=== PATIENT | female | born 1955 | race Caucasian/White ===

== ENCOUNTER → 2018-11-06 | Outpatient (REF) | payer MEDICARE, MEDICAID ==
[~2018-11-06] MED LIST: AMLO10TA5 PO; ASPI81TA85 PO; ATOR1TAB21 PO; CARV6.25 PO; ELIQ5TAB PO; ESCI10TA2 PO; ESOM0.1C PO; FERR1TAB8 PO; METF500T4 PO; NEXI10GR PO; PATIENT COMMENT; WARF4TAB51
[2018-11-06 15:53] LABS: BASO # 0.1 10^3/uL (0.0-0.2); BASO % 0.8 % (0.0-1.0); EOS % 0.3 % (0.0-3.0); HEMATOCRIT 30.3 % (36.0-47.0); HEMOGLOBIN 8.2 g/dl (12.0-15.5); LYMPH # 1.7 10^3/uL (1.5-4.5); LYMPH % 16.3 % (24.0-44.0); MEAN CORPUSCULAR HEMOGLOBIN 19.1 pg (27.0-33.0); MEAN CORPUSCULAR HGB CONC 27.1 g/dl (32.0-36.5); MEAN CORPUSCULAR VOLUME 70.5 fl (80.0-96.0); MONO # 0.7 10^3/uL (0.0-0.8); MONO % 6.3 % (0.0-5.0); NEUTROPHILS # 7.9 10^3/uL (1.8-7.7); NEUTROPHILS % 75.9 % (36.0-66.0); PLATELET COUNT, AUTOMATED 376 10^3/uL (150-450); WHITE BLOOD COUNT 10.4 10^3/uL (4.0-10.0)
[2018-11-06 16:19] LABS: INR 0.99; PROTHROMBIN TIME 12.8 SECONDS (11.8-14.0)
[2018-11-06 16:29] LABS: ALBUMIN 3.4 GM/DL (3.2-5.2); ALT/SGPT 15 U/L (12-78); BILIRUBIN,TOTAL 0.4 MG/DL (0.2-1.0); BLOOD UREA NITROGEN 12 MG/DL (7-18); CALCIUM LEVEL 8.8 MG/DL (8.8-10.2); CARBON DIOXIDE LEVEL 24 MEQ/L (21-32); CHLORIDE LEVEL 109 MEQ/L (98-107); CHOLESTEROL LEVEL 204 MG/DL (<200); CREATININE FOR GFR 0.82 MG/DL (0.55-1.30); FREE T4 0.95 NG/DL (0.76-1.46); GLOMERULAR FILTRATION RATE > 60.0 (>45); GLUCOSE, FASTING 130 MG/DL (70-100); HDL CHOLESTEROL 40 MG/DL (>40); LDL CHOLESTEROL 104 MG/DL (<100); NON-HDL-C 164 MG/DL; POTASSIUM SERUM 3.3 MEQ/L (3.5-5.1); SODIUM LEVEL 142 MEQ/L (136-145); TOTAL PROTEIN 7.9 GM/DL (6.4-8.2); TRIGLYCERIDES LEVEL 300 MG/DL (<150)
[2018-11-06 16:42] LABS: TOTAL 25(OH) VITAMIN D 8.8 NG/ML (30.0-100.0)
[2018-11-06 18:04] LABS: HEMOGLOBIN A1c 5.7 %
[2018-11-09 00:09] LABS: Lyme Disease IgG/IgM Antibodie <0.91 ISR (0.00-0.90); Lyme Disease IgM Ab Quantitati <0.80 index (0.00-0.79)
== END ==
LOC: M LAB REF 15:22
PROVIDERS: ATTEND Family Medicine
DX: Z79.01 Long term (current) use of anticoagulants (principal); Z13.228 Encounter for screening for other metabolic disorders

== ENCOUNTER 2018-11-07 06:48 | Inpatient (IN) | payer MEDICARE, MEDICAID ==
[~2018-11-07] VITALS: Ht 154.9 cm; Wt 68.1 kg
[2018-11-07] VITALS (16 sets, daily range): BP systolic 144–192; BP diastolic 70–108
[2018-11-07] MEDS ORDERED: ESCI10TA2 PO (06:57)
[2018-11-07] MEDS ORDERED: WARF4TAB51 (06:57)
[2018-11-07] MEDS ORDERED: METF500T4 PO (06:57)
[2018-11-07] MEDS ORDERED: NS 1,000 ML IV SCH ×2 (07:15→21:00)
[2018-11-07 07:49] LABS: BASO # 0.1 10^3/uL (0.0-0.2); BASO % 0.7 % (0.0-1.0); EOS # 0.1 10^3/uL (0.0-0.50); EOS % 0.7 % (0.0-3.0); HEMATOCRIT 30.9 % (36.0-47.0); HEMOGLOBIN 8.6 g/dl (12.0-15.5); LYMPH # 1.4 10^3/uL (1.5-4.5); LYMPH % 15.9 % (24.0-44.0); MEAN CORPUSCULAR HEMOGLOBIN 19.8 pg (27.0-33.0); MEAN CORPUSCULAR HGB CONC 27.8 g/dl (32.0-36.5); MEAN CORPUSCULAR VOLUME 71.2 fl (80.0-96.0); MONO # 0.6 10^3/uL (0.0-0.8); MONO % 6.3 % (0.0-5.0); NEUTROPHILS # 6.6 10^3/uL (1.8-7.7); NEUTROPHILS % 75.9 % (36.0-66.0); PLATELET COUNT, AUTOMATED 343 10^3/uL (150-450); RED BLOOD COUNT 4.34 10^6/uL (4.00-5.40); WHITE BLOOD COUNT 8.7 10^3/uL (4.0-10.0)
[2018-11-07] MEDS ORDERED: NEXI10GR PO (07:53)
[2018-11-07 08:01] LABS: INR 1.05; PROTHROMBIN TIME 13.4 SECONDS (11.8-14.0)
[2018-11-07] MEDS: GASTROGRAFIN SOLUTION 30ML PO SCH ×2 (08:17→08:48)
[2018-11-07 08:19] LABS: ALBUMIN 3.3 GM/DL (3.2-5.2); ALT/SGPT 15 U/L (12-78); BILIRUBIN,DIRECT 0.1 MG/DL (0.0-0.2); BILIRUBIN,TOTAL 0.4 MG/DL (0.2-1.0); BLOOD UREA NITROGEN 11 MG/DL (7-18); CALCIUM LEVEL 8.9 MG/DL (8.8-10.2); CARBON DIOXIDE LEVEL 26 MEQ/L (21-32); CHLORIDE LEVEL 109 MEQ/L (98-107); CPK CREATINE PHOSPHOKINASE 58 U/L (26-192); CREATININE FOR GFR 0.82 MG/DL (0.55-1.30); FERRITIN 5 NG/ML (8-252); GLOMERULAR FILTRATION RATE > 60.0 (>45); GLUCOSE, FASTING 120 MG/DL (70-100); IRON (FE) 28 UG/DL (50-170); MB/CK RELATIVE INDEX 1.72 (< OR =4); PERCENT SATURATION 5.7 % (13.2-45.0); POTASSIUM SERUM 3.3 MEQ/L (3.5-5.1); SODIUM LEVEL 142 MEQ/L (136-145); TOTAL IRON BINDING CAPACITY 487 UG/DL (250-450); TOTAL PROTEIN 7.9 GM/DL (6.4-8.2); TROPONIN I < 0.02 NG/ML (< 0.10)
[2018-11-07] MEDS ORDERED: ELIQ5TAB PO (09:36)
[2018-11-07] MEDS ORDERED: ESOM0.1C PO (09:36)
[2018-11-07] MEDS ORDERED: PATIENT COMMENT (09:40)
[2018-11-07] MEDS ORDERED: LISINOPRIL 20 MG TAB PO ONE (09:45)
[2018-11-07 09:50] LABS: VITAMIN B12 LEVEL 352 PG/ML
[2018-11-07 09:51] LABS: FOLATE 11.8 NG/ML
[2018-11-07] MEDS ORDERED: ISOVUE-370 76% 100ML VIAL (Q9967) As Ordered ONE (09:59)
--- NOTE | 2018-11-07 10:25 | HPEPDOC ---
[facility] Medical History & Physical Date of Admission Nov 07, 2018 Date of Service: Nov 07, 2018 Attending Physician: MAXINE PEDRAZA MD History and Physical Time of service 10 AM CHIEF COMPLAINT bright red blood per rectum HISTORY OF PRESENT ILLNESS: This is a 63-year-old female who presents with complaints of new onset bright red blood per rectum that occurred this morning. Just prior to having the episode she felt like she is about to have diarrhea. She reports having a history of diarrhea for the last 4 months with the last episode of diarrhea 2 days ago. She reports having 3-4 bowel movements per day on days when the diarrhea is active; she takes loperamide. She denies having abdominal pain, and denies ever having hematemesis. She does endorse having some dizziness yesterday PAST MEDICAL & SURGICAL HISTORY: 1. CVA and TIA. 2. Hypertension. 3 dyslipidemia. 4. Bipolar disorder with depression. 5. History of hysterectomy. 6. History of breast nodule resection 7. DM SOCIAL HISTORY: Admits to smoking 2 packs of cigarettes per day. Denies alcohol use FAMILY HISTORY: Father had an PA. Brother had a CVA. Another family member had colon cancer. ALLERGIES: Please see below. REVIEW OF SYSTEMS: 12 point review of systems negative except as listed in HPI HOME MEDICATIONS: Please see below. PHYSICAL EXAMINATION: VITAL SIGNS: Temperature 96F, pulse 77 bpm, respiratory rate 16 breaths per minute, blood pressure 184/62, pulse oximetry 99% on room air GENERAL APPEARANCE: Well-nourished, developed, flat affect. HEENT: Normocephalic, atraumatic, mucous membranes moist and pink, no tongue glossitis, conjunctival pallor CARDIOVASCULAR: Regular rate and rhythm. No murmurs, rubs or gallops, radial pulses intact bilaterally LUNGS: Clear to auscultation bilaterally on room air. ABDOMEN: Obese, no postsurgical scars, soft and nontender on palpation. MUSCULOSKELETAL: Age of motion intact 4 extremities, EXTREMITIES: No bilateral lower extremity edema. NEUROLOGICAL: CN II to 12 grossly intact. Speech is not dysarthric PSYCHIATRIC: Alert and oriented to person, place and time, able to understand and follow commands. Patient does have some psychomotor slowing and a flat affect. LABORATORY DATA: See below. IMAGING: CT of the abdomen shows thickening of the descending and sigmoid colon, possibly due to colitis MICROBIOLOGY: Please see below. ASSESSMENT: Mrs. Monique is a 63-year-old female with a past medical history of hypertension, dyslipidemia, CVAs, TIAs, bipolar disorder with depression and tobacco abuse who will be admitted for evaluation of lower GI bleed. . PLAN: 1. Lower GI bleed. Possibly due to colitis. The differential also includes diverticulosis, angiodysplasia &hemorrhoids. Hemoglobin was 8.6. CT of the abdomen showed possible colitis Plan: admit to general medical floor / Follow-up stool occult blood /follow-up report from CT of the abdomen / type and screen/ bowel prep afternoon/nothing by mouth after midnight with IV fluids /GI consult /hold apixaban 2. Uncontrolled hypertension. Plan: start Amlodpine 5mg PO daily and Lisinopril 5mg daily 3. Hypokalemia. Likely due to GI loss. Plan: Replete potassium /. Follow-up BMP in the morning 4. Diabetes. Plan: Hold metformin, follow Accu-Cheks, follow-up A1c 5. History of CVA and TIA. Plan: hold apixaban 6. Bipolar disorder with depression. Plan continue with home medsa Tobacco dependence. Plan: Nicotine patch /tobacco cessation counseling Disposition: Pending clinical course. DVT prophylaxis SCDs. No chemical thromboprophylaxis due to acute anemia Vital Signs Vital Signs Date Time Temp Pulse Resp B/P (MAP) Pulse Ox O2 Delivery O2 Flow Rate FiO2 11/07/18 09:42 209/84 11/07/18 08:48 66 98 11/07/18 06:48 96.0 16 Room Air Laboratory Data Labs 24H Laboratory Tests 2 11/07/18 07:33: Immature Granulocyte % (Auto) 0.5, White Blood Count 8.7, Red Blood Count 4.34, Hemoglobin 8.6L, Hematocrit 30.9L, Mean Corpuscular Volume 71.2L, Mean Corpuscular Hemoglobin 19.8L, Mean Corpuscular Hemoglobin Concent 27.8L, Red Cell Distribution Width 21.5H, Platelet Count 343, Neutrophils (%) (Auto) 75.9H, Lymphocytes (%) (Auto) 15.9L, Monocytes (%) (Auto) 6.3H, Eosinophils (%) (Auto) 0.7, Basophils (%) (Auto) 0.7, Neutrophils # (Auto) 6.6, Lymphocytes # (Auto) 1.4L, Monocytes # (Auto) 0.6, Eosinophils # (Auto) 0.1, Basophils # (Auto) 0.1, Nucleated Red Blood Cells % (auto) 0.0, Prothrombin Time 13.4, Prothromb Time International Ratio 1.05, Activated Partial Thromboplast Time 27.0, Anion Gap 7L, Glomerular Filtration Rate > 60.0, Calcium Level 8.9, Iron Level 28L, Total Iron Binding Capacity 487H, Transferrin % Saturation 5.7L, Ferritin 5L, Aspartate Amino Transf (AST/SGOT) 14, Alanine Aminotransferase (ALT/SGPT) 15, Alkaline Phosphatase 137H, Total Bilirubin 0.4, Direct Bilirubin 0.1, Total Creatine Kinase 58, Creatine Kinase MB 1.0, Creatine Kinase MB Relative Index 1.72, Troponin I < 0.02, Total Protein 7.9, Albumin 3.3, Albumin/Globulin Ratio 0.72L, Vitamin B12 Level 352, Folate 11.8 CBC/BMP Laboratory Tests 11/07/18 07:33 Red Blood Count 4.34, Mean Corpuscular Volume 71.2 L, Mean Corpuscular Hemoglobin 19.8 L, Mean Corpuscular Hemoglobin Concent 27.8 L, Red Cell Distribution Width 21.5 H, Neutrophils (%) (Auto) 75.9 H, Lymphocytes (%) (Auto) 15.9 L, Monocytes (%) (Auto) 6.3 H, Eosinophils (%) (Auto) 0.7, Basophils (%) (Auto) 0.7, Neutrophils # (Auto) 6.6, Lymphocytes # (Auto) 1.4 L, Monocytes # (Auto) 0.6, Eosinophils # (Auto) 0.1, Basophils # (Auto) 0.1 Home Medications Scheduled Apixaban (Eliquis) 5 Mg Tablet, 5 MG PO BID PATIENT WAS ON WARFARIN 3 MG DAILY - ON MONDAY THE WARFARIN WAS DISCONTINUED AND IS TO START ELIQUIS ON Monday11/08/18 Escitalopram Oxalate (Escitalopram Oxalate) 10 Mg Tablet, 10 MG PO DAILY NEW MEDICATION - PATIENT HAS NOT STARTED YET. Esomeprazole Magnesium (Esomeprazole Magnesium) 20 Mg Capsule.dr, 20 MG PO DAILY Metformin HCl (Metformin HCl ER) 500 Mg Tab.er.24h, 500 MG PO BID Miscellaneous Medications [Patient Comment] PATIENT STATES SHE USED TO TAKE MEDICATION FOR CHOLESTEROL AND HIGH BLOOD PRESSURE... CALLED HER PREVIOUS PHARMACY IN [place], THEY HAVE NO RECORD OF A BP MEDICATION. SHE DID HAVE ATORVASTATIN 80MG. PATIENT HAS NOT TAKEN THESE MEDICATIONS IN AT LEAST 4 MONTHS BUT HAS APPOINTMENT ON 11/09/18. Allergies Coded Allergies: No Known Allergies (Unverified , 11/07/18) A-FIB/CHADSVASC A-FIB History Current/History of A-Fib/PAF?: No Current PO Anticoag Therapy: No MAXINE PEDRAZA MD Nov 07, 2018 10:25
--- NOTE | 2018-11-07 10:31 | REP ---
CT of the abdomen and pelvis with IV contrast and with bowel contrast: There are no comparisons. The visualized lower lung peguero are unremarkable. There is a 6.4 cm hiatal hernia. The hepatic parenchyma, gallbladder, pancreas, spleen, adrenals and abdominal aorta are unremarkable. There is no retroperitoneal adenopathy or mass. There is wall thickening of the descending colon and sigmoid colon, compatible with colitis in the appropriate clinical setting. The bowel is otherwise unremarkable. Pelvis: There is a hysterectomy. Vaginal cuff and adnexa are unremarkable. The bladder is unremarkable. There is no ascites. There is no adenopathy. Impression: Wall thickening of the descending colon and sigmoid colon compatible with colitis in the appropriate clinical setting. Hysterectomy. Electronically Signed by Adolfo Fonseca MD 11/07/2018 10:23 A
[2018-11-07] MEDS ORDERED: NICOTINE 21MG/24HR 1 EA TRANSDERMAL TD ONE (10:45)
[2018-11-07] MEDS ORDERED: amLODIPine 5 MG TAB PO ONE (11:30)
[2018-11-07] MEDS ORDERED: LISINOPRIL 5 MG TAB PO ONE (11:30)
[2018-11-07] MEDS: KCL 20MEQ in NS 1000ML 1,000 ML IV SCH (11:54)
[2018-11-07] MEDS ORDERED: GOLYTELY SOLN 4000 ML BTL PO ONE ×2 (12:00→16:00)
--- NOTE | 2018-11-07 14:47 | REP ---
Portable chest, 08:09 a.m., single AP view with the patient semi upright: There are no comparisons. The lung peguero are clear. The cardiac size is normal. The vashti, mediastinum, and skeletal structures are unremarkable. Impression: Negative portable chest. Electronically Signed by Adolfo Fonseca MD 11/07/2018 08:22 A
[2018-11-07] MEDS: ESCITALOPRAM OXALATE 10 MG TAB (LEXAPRO) PO SCH (14:48)
[2018-11-07] MEDS: METOPROLOL 5 MG/5 ML VIAL IV PRN (16:31)
[2018-11-07] MEDS: ACETAMINOPHEN 500 MG TAB PO PRN (17:25)
--- NOTE | 2018-11-07 20:32 | ECGEPIP ---
[facility] - ED Test Date: 2018-11-07 Pat Name: TRAVON LIVINGSTON Department: Room: - Gender: Female Controls Technician: DEBRA : [id number] Requested By: Eddie Acharya Order Number: [id number] Reading MD: Eddie Gomez Measurements Intervals [place] Rate: 71 P: 67 HI: 134 QRS: 26 QRSD: 80 T: 44 QT: 416 QTc: 454 Interpretive Statements SINUS RHYTHM NO PRIORS FOR COMPARISON Electronically Signed on 11-07-2018 20:32:27 EDT by Eddie Gomez
[2018-11-08] VITALS (10 sets, daily range): BP systolic 132–198; BP diastolic 42–90
[2018-11-08] MEDS ORDERED: ONDANSETRON 4MG/2ML VIAL (J2405) IV SCH
[2018-11-08] MEDS ORDERED: ONDANSETRON 4MG/2ML VIAL (J2405) IV PRN (00:30)
[2018-11-08] MEDS: METOPROLOL 5 MG/5 ML VIAL IV PRN (01:56)
[2018-11-08] MEDS: ACETAMINOPHEN 500 MG TAB PO PRN ×2 (02:13→16:55)
[2018-11-08] MEDS ORDERED: amLODIPine 10 MG TAB PO ONE (02:15)
[2018-11-08 05:48] LABS: HEMATOCRIT 29.8 % (36.0-47.0); HEMOGLOBIN 7.9 g/dl (12.0-15.5); MEAN CORPUSCULAR HEMOGLOBIN 19.1 pg (27.0-33.0); MEAN CORPUSCULAR HGB CONC 26.5 g/dl (32.0-36.5); PLATELET COUNT, AUTOMATED 355 10^3/uL (150-450); RED BLOOD COUNT 4.14 10^6/uL (4.00-5.40); WHITE BLOOD COUNT 8.3 10^3/uL (4.0-10.0)
[2018-11-08 06:04] LABS: HEMOGLOBIN A1c 5.4 %
[2018-11-08 06:18] LABS: BLOOD UREA NITROGEN 5 MG/DL (7-18); CARBON DIOXIDE LEVEL 29 MEQ/L (21-32); CHLORIDE LEVEL 110 MEQ/L (98-107); CREATININE FOR GFR 0.71 MG/DL (0.55-1.30); GLOMERULAR FILTRATION RATE > 60.0 (>45); GLUCOSE, FASTING 105 MG/DL (70-100); MAGNESIUM LEVEL 2.1 MG/DL (1.8-2.4); POTASSIUM SERUM 3.3 MEQ/L (3.5-5.1); SODIUM LEVEL 143 MEQ/L (136-145)
[2018-11-08] MEDS ORDERED: hydrALAZINE INJ 20 MG/ML VIAL IV PRN (09:00)
[2018-11-08] MEDS: KCL 20MEQ in NS 1000ML 1,000 ML IV SCH (09:12)
[2018-11-08] MEDS: ESCITALOPRAM OXALATE 10 MG TAB (LEXAPRO) PO SCH (09:12)
[2018-11-08] MEDS: LISINOPRIL 40 MG TAB PO SCH (09:12)
[2018-11-08] MEDS ORDERED: ENALAPRILAT INJ 2.5MG/2ML VIAL IV ONE (18:00)
[2018-11-08] MEDS ORDERED: CARVedilol 6.25 MG TAB PO ONE (18:00)
--- NOTE | 2018-11-08 18:30 | IPNPDOC ---
Subjective Date Seen The patient was seen on 11/08/18. Time of service 9:15 AM Subjective Chief Complaint/HPI The patient tolerated bowel prep and did not have additional episodes of bloody stools Assessment /Plan Assessment Mrs. Monique is a 63-year-old female with a past medical history of hypertension, dyslipidemia, CVAs, TIAs, bipolar disorder with depression and tobacco abuse who will be admitted for evaluation of lower GI bleed. . PLAN: 1. Lower GI bleed. -Possibly due to colitis versus diverticulosis, versus angiodysplasia or hemorrhoids. -Her Hemoglobin has dropped slightly -The CT of the abdomen showed possible colitis -Stool occult was negative Plan: Follow-up stool occult blood /will continue his clear liquid diet for now but will switch to nothing by mouth after midnight for colonoscopy on Monday / GI consulted/hold apixaban 2. Uncontrolled hypertension. Plan: Increase Amlodpine to 10 mg PO daily, Lisinopril 40 mg daily and add Coreg 6.25 mg every 12 hours 3. Hypokalemia. Likely due to GI loss. Plan: Replete potassium /. Follow-up BMP in the morning 4. Diabetes. -A1c 5.4 Plan: Hold metformin, follow Accu-Cheks 5. History of CVA and TIA. Plan: hold apixaban 6. Bipolar disorder with depression. Plan continue with home medsa Tobacco dependence. Plan: Nicotine patch /tobacco cessation counseling Disposition: Pending completion of colonoscopy DVT prophylaxis SCDs. No chemical thromboprophylaxis due to lower GI bleed Plan/VTE VTE Prophylaxis Ordered?: No VTE Exclusion Mechanical Proph: Other VTE Exclusion Pharmacological: Active Bleeding VS, I&O, 24H, Fishbone Vital Signs/I&O Vital Signs Date Time Temp Pulse Resp B/P (MAP) Pulse Ox O2 Delivery O2 Flow Rate FiO2 11/08/18 18:18 67 160/42 11/08/18 16:00 97.4 17 96 11/07/18 13:56 Room Air I&O- Last 24 Hours up to 6 AM 11/08/18 05:59 Intake Total 1200 ml Output Total 600 ml Balance 600 ml Laboratory Data 24H LABS Laboratory Tests 2 11/08/18 05:33: Nucleated Red Blood Cells % (auto) 0.0, Anion Gap 4L, Glomerular Filtration Rate > 60.0, Estimated Mean Plasma Glucose 108, Hemoglobin A1c 5.4, Blood Urea Nitrogen 5#L, Creatinine 0.71, Sodium Level 143, Potassium Level 3.3L, Chloride Level 110H, Carbon Dioxide Level 29, Calcium Level 9.0, Magnesium Level 2.1 CBC/BMP Laboratory Tests 11/08/18 05:33 Red Blood Count 4.14, Mean Corpuscular Volume 72.0 L, Mean Corpuscular Hemoglobin 19.1 L, Mean Corpuscular Hemoglobin Concent 26.5 L, Red Cell Distribution Width 21.6 H, Calcium Level 9.0 Microbiology Microbiology 11/07/18 Stool Occult Blood (JERALD) - Final, Complete MAXINE PEDRAZA MD Nov 08, 2018 18:30
[2018-11-08] MEDS ORDERED: KCL 10MEQ/100ML SWI (KRUN) 10 MEQ in APPROPRIATE DILUENT 1 EA IV ONE (18:45)
[2018-11-09] VITALS (12 sets, daily range): BP systolic 120–177; BP diastolic 58–77
[2018-11-09 05:33] LABS: BASO # 0.1 10^3/uL (0.0-0.2); BASO % 0.6 % (0.0-1.0); EOS % 0.4 % (0.0-3.0); HEMATOCRIT 27.4 % (36.0-47.0); HEMOGLOBIN 7.3 g/dl (12.0-15.5); LYMPH # 2.1 10^3/uL (1.5-4.5); LYMPH % 22.9 % (24.0-44.0); MEAN CORPUSCULAR HEMOGLOBIN 19.3 pg (27.0-33.0); MEAN CORPUSCULAR HGB CONC 26.6 g/dl (32.0-36.5); MEAN CORPUSCULAR VOLUME 72.5 fl (80.0-96.0); MONO # 0.7 10^3/uL (0.0-0.8); MONO % 7.1 % (0.0-5.0); NEUTROPHILS # 6.4 10^3/uL (1.8-7.7); NEUTROPHILS % 68.7 % (36.0-66.0); PLATELET COUNT, AUTOMATED 312 10^3/uL (150-450); RED BLOOD COUNT 3.78 10^6/uL (4.00-5.40); WHITE BLOOD COUNT 9.4 10^3/uL (4.0-10.0)
[2018-11-09 05:48] LABS: BLOOD UREA NITROGEN 5 MG/DL (7-18); CALCIUM LEVEL 8.3 MG/DL (8.8-10.2); CARBON DIOXIDE LEVEL 27 MEQ/L (21-32); CHLORIDE LEVEL 114 MEQ/L (98-107); CREATININE FOR GFR 0.78 MG/DL (0.55-1.30); GLOMERULAR FILTRATION RATE > 60.0 (>45); GLUCOSE, FASTING 92 MG/DL (70-100); POTASSIUM SERUM 3.4 MEQ/L (3.5-5.1); SODIUM LEVEL 144 MEQ/L (136-145)
[2018-11-09] MEDS: KCL 20MEQ in NS 1000ML 1,000 ML IV SCH (06:39)
[2018-11-09] MEDS: ESCITALOPRAM OXALATE 10 MG TAB (LEXAPRO) PO SCH (08:30)
[2018-11-09] MEDS: CARVedilol 6.25 MG TAB PO SCH ×2 (08:31→20:32)
[2018-11-09] MEDS: LISINOPRIL 40 MG TAB PO SCH (08:31)
[2018-11-09] MEDS: amLODIPine 10 MG TAB PO SCH (08:31)
[2018-11-09] MEDS ORDERED: IRON SUCROSE 25 MG in NS 50 ML IV ONE (12:00)
[2018-11-09] MEDS ORDERED: IRON SUCROSE 75 MG in NS 100 ML IV ONE (12:00)
[2018-11-09] MEDS ORDERED: LIDOCAINE 2% INJ 100 MG/5 ML SDV (FOR ANES.) As Ordered ONE (13:20)
[2018-11-09] MEDS ORDERED: PROPOFOL 200 MG/20 ML VIAL As Ordered ONE (13:20)
[2018-11-09] MEDS ORDERED: ePHEDrine SULFATE 25 MG/5 ML(5MG/ML) SYRINGE As Ordered ONE (13:36)
--- NOTE | 2018-11-09 15:01 | CR ---
DATE OF CONSULTATION: 11/08/2018 This is a 63-year-old white female who was admitted to [facility] ([facility]) on 11/07/2018 for a history of sudden onset of bright red blood per rectum. The patient has had issues with diarrhea for the past four months and has had on average 3-4 bowel movements per day. She has been using loperamide to help control her symptoms. She denies any nausea, vomiting, fevers, night sweats or shaking chills. The patient is being seen by gastroenterology (GI) for further evaluation of anemia and her rectal bleeding. PAST MEDICAL HISTORY: Positive for hypertension, bipolar disorder with depression, diabetes mellitus, hypertension, and history of cerebrovascular accident (CVA) and transient ischemic attack (TIA). SOCIAL HISTORY: The patient smokes two packs of cigarettes a day. Alcohol, she denies. FAMILY HISTORY: Brother had a cerebrovascular accident (CVA). Father had a myocardial infarction. Apparently, there is some family member who had colon cancer above we do not know whether this is a first degree relative. ALLERGIES: Noncontributory. REVIEW OF SYSTEMS: 12-point review of systems is noncontributory. PHYSICAL EXAMINATION: GENERAL: Well-developed, well-nourished female in no acute distress. Appears stated age. CHEST: Clear to auscultation and percussion. CARDIOVASCULAR: Showed a regular rhythm. No murmurs or gallops. Normal physiological split, S1, S2. ABDOMEN: Soft, nontender. No masses, guarding, rebound or hepatosplenomegaly. Bowel sounds are positive. CT of the abdomen suggested thickening of the sigmoid and descending colon. LABORATORY STUDIES: On admission showed a white count of 8700, hemoglobin and hematocrit was 8.6 and 30.9 with an MCV of 71.2. The patient's count on 11/08/2018 was 7.9 and 29.8 with no obvious further episodes of bleeding. The patient's chemistry showed a potassium of 3.3, BUN was 11, creatinine was 0.82, glucose was 120. Liver functions were normal. Troponins were negative. ANALYSIS: Lower gastrointestinal (GI) bleeding of unknown etiology. The patient states that she has never had a colonoscopy before. The plan will be to set the patient up for a colonoscopy. Bowel preparation has been ordered. The purpose of the procedure is to rule out any occult neoplasm or polyps and to assess the patient's etiology of her bleeding.
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
[2018-11-09] MEDS ORDERED: SLF 3 ML SYR IV PRN (18:45)
--- NOTE | 2018-11-09 20:20 | IPNPDOC ---
Subjective Date Seen The patient was seen on 11/09/18. Time of service 4:35 PM Subjective Chief Complaint/HPI Bright red blood per rectum Events since last encounter Post colonoscopy the patient just found out that she had rectal cancer is teary and is in shock. She denies having any questions or now. Objective Physical Examination Other physical findings PHYSICAL EXAMINATION: GENERAL APPEARANCE: Well-nourished, developed, teary, anxious HEENT: Normocephalic, atraumatic, mucous membranes moist and pink, CARDIOVASCULAR: Regular rate and rhythm. No murmurs, rubs or gallops, LUNGS: Clear to auscultation bilaterally on room air. ABDOMEN: Obese, soft and nontender on palpation. NEUROLOGICAL: CN II to 12 grossly intact. Speech is not dysarthric PSYCHIATRIC: Alert and oriented to person, place and time, able to understand and follow commands. Assessment /Plan Assessment Mrs. Monique is a 63-year-old female with a past medical history of hypertension, dyslipidemia, CVAs, TIAs, bipolar disorder with depression and tobacco abuse who will be admitted for evaluation of lower GI bleed. . PLAN: 1. Acute anemia in the setting of lower GI bleed secondary to rectal cancer Hemoglobin is trending down. Stool occult blood was negative. Colonoscopy was done today, which confirmed the presence of rectal cancer Plan: Per discussion with GI will consult surgery and hematology, we'll transfuse 1 unit of blood today 2. Chronic hypertension. Better controlled Plan: Continue with Amlodpine 10 mg PO daily, Lisinopril 40 mg daily and Coreg 6.25 mg every 12 hours 3. Hypokalemia. Likely due to GI loss. Plan: Replete potassium /. Follow-up BMP and magnesium in the morning 4. Diabetes. -A1c 5.4 Plan: Hold metformin, follow Accu-Cheks 5. History of CVA and TIA. Plan: resume apixaban 6. Bipolar disorder with depression. The patient is currently anxious and teary Plan uptitrate antidepressants Tobacco dependence. Plan: Nicotine patch /tobacco cessation counseling Disposition: Pending subspecialist recommendations. DVT prophylaxis with apixaban Plan/VTE VTE Prophylaxis Ordered?: No VTE Exclusion Mechanical Proph: Other VTE Exclusion Pharmacological: Active Bleeding VS, I&O, 24H, Fishbone Vital Signs/I&O Vital Signs Date Time Temp Pulse Resp B/P (MAP) Pulse Ox O2 Delivery O2 Flow Rate FiO2 11/09/18 17:40 97.1 63 18 124/61 (82) 94 11/07/18 13:56 Room Air I&O- Last 24 Hours up to 6 AM 11/09/18 05:59 Intake Total 2460 ml Output Total 850 ml Balance 1610 ml Laboratory Data 24H LABS Laboratory Tests 2 11/09/18 05:12: Immature Granulocyte % (Auto) 0.3, White Blood Count 9.4, Red Blood Count 3.78L, Hemoglobin 7.3L, Hematocrit 27.4L, Mean Corpuscular Volume 72.5L, Mean Corpuscular Hemoglobin 19.3L, Mean Corpuscular Hemoglobin Concent 26.6L, Red Cell Distribution Width 21.4H, Platelet Count 312, Neutrophils (%) (Auto) 68.7H, Lymphocytes (%) (Auto) 22.9L, Monocytes (%) (Auto) 7.1H, Eosinophils (%) (Auto) 0.4, Basophils (%) (Auto) 0.6, Neutrophils # (Auto) 6.4, Lymphocytes # (Auto) 2.1, Monocytes # (Auto) 0.7, Eosinophils # (Auto) 0.0, Basophils # (Auto) 0.1, Nucleated Red Blood Cells % (auto) 0.0, Anion Gap 3L, Glomerular Filtration Rate > 60.0, Blood Urea Nitrogen 5L, Creatinine 0.78, Sodium Level 144, Potassium Level 3.4L, Chloride Level 114H, Carbon Dioxide Level 27, Calcium Level 8.3L 11/09/18 14:49: Carcinoembryonic Antigen 2.2 CBC/BMP Laboratory Tests 11/09/18 05:12 Red Blood Count 3.78 L, Mean Corpuscular Volume 72.5 L, Mean Corpuscular Hemoglobin 19.3 L, Mean Corpuscular Hemoglobin Concent 26.6 L, Red Cell Distribution Width 21.4 H, Neutrophils (%) (Auto) 68.7 H, Lymphocytes (%) (Auto) 22.9 L, Monocytes (%) (Auto) 7.1 H, Eosinophils (%) (Auto) 0.4, Basophils (%) (Auto) 0.6, Neutrophils # (Auto) 6.4, Lymphocytes # (Auto) 2.1, Monocytes # (Auto) 0.7, Eosinophils # (Auto) 0.0, Basophils # (Auto) 0.1, Calcium Level 8.3 L Microbiology Microbiology 11/07/18 Stool Occult Blood (JERALD) - Final, Complete MAXIEN PEDRAZA MD Nov 09, 2018 20:20
[2018-11-09] MEDS ORDERED: POTASSIUM CHLORIDE 10 MEQ SR TABLET PO ONE (21:00)
[2018-11-09] MEDS ORDERED: LORazepam 0.5 MG TAB PO ONE (21:00)
[2018-11-09] MEDS: NICOTINE 14 MG/24 HR TRANSDERMAL TD SCH (21:33)
[2018-11-09] MEDS: APIXABAN 5 MG TAB (ELIQUIS) PO SCH (21:34)
[2018-11-09] MEDS: SLF 3 ML SYR IV SCH (21:37)
[2018-11-10] VITALS: BP 148/58
[2018-11-10 04:00] VITALS: BP 106/53
[2018-11-10 05:15] LABS: BASO # 0.1 10^3/uL (0.0-0.2); BASO % 0.6 % (0.0-1.0); EOS # 0.1 10^3/uL (0.0-0.50); EOS % 0.7 % (0.0-3.0); HEMATOCRIT 34.2 % (36.0-47.0); LYMPH # 1.6 10^3/uL (1.5-4.5); LYMPH % 18.5 % (24.0-44.0); MEAN CORPUSCULAR HEMOGLOBIN 22.4 pg (27.0-33.0); MEAN CORPUSCULAR HGB CONC 29.2 g/dl (32.0-36.5); MEAN CORPUSCULAR VOLUME 76.7 fl (80.0-96.0); MONO # 0.6 10^3/uL (0.0-0.8); MONO % 6.7 % (0.0-5.0); NEUTROPHILS # 6.3 10^3/uL (1.8-7.7); NEUTROPHILS % 72.8 % (36.0-66.0); PLATELET COUNT, AUTOMATED 277 10^3/uL (150-450); RED BLOOD COUNT 4.46 10^6/uL (4.00-5.40); WHITE BLOOD COUNT 8.7 10^3/uL (4.0-10.0)
[2018-11-10 05:41] LABS: BLOOD UREA NITROGEN 8 MG/DL (7-18); CALCIUM LEVEL 8.4 MG/DL (8.8-10.2); CARBON DIOXIDE LEVEL 24 MEQ/L (21-32); CHLORIDE LEVEL 112 MEQ/L (98-107); CREATININE FOR GFR 0.78 MG/DL (0.55-1.30); GLOMERULAR FILTRATION RATE > 60.0 (>45); GLUCOSE, FASTING 103 MG/DL (70-100); POTASSIUM SERUM 3.7 MEQ/L (3.5-5.1); SODIUM LEVEL 142 MEQ/L (136-145)
[2018-11-10] MEDS: SLF 3 ML SYR IV SCH ×2 (06:00→12:39)
[2018-11-10 08:00] VITALS: BP 154/90
[2018-11-10] MEDS: NICOTINE 14 MG/24 HR TRANSDERMAL TD SCH (08:48)
[2018-11-10] MEDS: APIXABAN 5 MG TAB (ELIQUIS) PO SCH (08:49)
[2018-11-10 08:50] VITALS: BP 106/53
[2018-11-10] MEDS: amLODIPine 10 MG TAB PO SCH (08:50)
[2018-11-10] MEDS: CARVedilol 6.25 MG TAB PO SCH (08:50)
[2018-11-10] MEDS: LISINOPRIL 40 MG TAB PO SCH (08:51)
[2018-11-10] MEDS ORDERED: raNITIdine SYRUP 150 MG/10 ML UDC PO SCH (09:00)
[2018-11-10] MEDS ORDERED: IRON SUCROSE 100MG 5ML VIAL (J1756 PER 1MG) IV SCH (09:00)
[2018-11-10] MEDS ORDERED: ESCITALOPRAM OXALATE 10 MG TAB (LEXAPRO) PO SCH (09:00)
[2018-11-10] MEDS ORDERED: NICOTINE 14 MG/24 HR TRANSDERMAL TD SCH (09:00)
[2018-11-10] MEDS ORDERED: IRON SUCROSE 100 MG in NS 100 ML OVER 1 HR IV SCH (12:00)
[2018-11-10] MEDS ORDERED: AMLO10TA5 PO (13:32)
[2018-11-10] MEDS ORDERED: ESCI10TA2 PO (13:32)
[2018-11-10] MEDS ORDERED: CARV6.25 PO (13:32)
[2018-11-10] MEDS ORDERED: FERR1TAB8 PO (13:32)
--- NOTE | 2018-11-10 13:33 | DS.PDOC ---
Discharge Summary General Date of Admission Nov 08, 2018 at 19:19 Date of Discharge 11.10.18 Primary Care Physician: A Attending Physician: MAXINE PEDRAZA MD Specialist/Consultants Involve: A Specialist/Consultants Involve PCP Dr. Carcamo Discharge Summary PROCEDURES PERFORMED DURING STAY: Colonoscopy ADMITTING DIAGNOSES: 1. Lower GI bleed. 2. Uncontrolled hypertension. 3. Hypokalemia. DISCHARGE DIAGNOSES: 1. Iron deficiency anemia in the setting of rectal cancer. 2. Chronic hypertension. COMPLICATIONS/CHIEF COMPLAINT: Hypertension,Lower Gi Bleed. HISTORY OF PRESENT ILLNESS: For HPI this is a 63-year-old female who presented with complaints of new onset bright red blood per rectum. Her review of systems is positive for relapsing and remitting diarrhea for several months and dizziness. Based on the initial workup , she was admitted to the general medical floor to determine the cause of the lower GI bleed and acute anemia. Note her blood pressure was very elevated with a maximum systolic blood pressure of 213 noted on arrival. HOSPITAL COURSE: The patient underwent colonoscopy and was diagnosed with rectal cancer; she is evaluated by the hematology oncology service and general surgeon. The plan will be for her to follow-up with them on an outpatient basis for additional testing and for treatment. The patient's iron panel consistent with iron deficiency anemia for which she received PRBCs and IV iron. Was started on lisinopril, amlodipine and Coreg for her blood pressure. She has a history of strokes and was in the Pexeva. We discontinued this medication in favor of aspirin. We also started her on a statin. She is examined on November 10 at 10:20 AM and reported being ready to go home. DISCHARGE MEDICATIONS: Please see below. ALLERGIES: Please see below. PHYSICAL EXAMINATION ON DISCHARGE: VITAL SIGNS: Please see below. GENERAL: anxious and teary HEENT: Normocephalic, atraumatic. Mucous membranes moist and pink CARDIOVASCULAR EXAMINATION: Regular rate and rhythm. No murmurs, rubs or gallops RESPIRATORY EXAMINATION: Clear to auscultation bilaterally while on room air SKIN: No generalized pallor NEUROLOGICAL EXAMINATION: CN II to 12 grossly intact, speech, not dysarthric PSYCHIATRIC EXAMINATION: Alert and oriented to person, place and time, able to understand and follow commands LABORATORY DATA: Please see below. IMAGING: CT of the abdomen showed thickening of the colon PROGNOSIS: fairl ACTIVITY: As tolerated DISCHARGE PLAN: Into care worker's custody DISPOSITION: . DISCHARGE INSTRUCTIONS: 1. -for the strokes stop taking apixaban and start taking aspirin and atorva statin -for iron deficiency start taking iron supplements -for high blood pressure start taking lisinopril, amlodipin and coreg ITEMS TO FOLLOWUP ON ON OUTPATIENT: 1 Treatment of rectal cancer 2.Management of iron deficiency anemia 3. Uncontrolled hypertension DISCHARGE CONDITION: [Stable]. TIME SPENT ON DISCHARGE: Greater than 35minutes. Vital Signs/I&Os Vital Signs Date Time Temp Pulse Resp B/P (MAP) Pulse Ox O2 Delivery O2 Flow Rate FiO2 11/10/18 08:50 64 154/90 11/10/18 08:00 96.8 18 98 11/07/18 13:56 Room Air l I&O- Last 24 Hours up to 6 AM 11/10/18 06:00 Intake Total 1690.00 ml Output Total 550 ml Balance 1140.00 ml Laboratory Data Labs 24H Laboratory Tests 2 11/09/18 14:49: Carcinoembryonic Antigen 2.2 11/10/18 04:39: Immature Granulocyte % (Auto) 0.7, White Blood Count 8.7, Red Blood Count 4.46, Hemoglobin 10.0#L, Hematocrit 34.2L, Mean Corpuscular Volume 76.7L, Mean Corpuscular Hemoglobin 22.4L, Mean Corpuscular Hemoglobin Concent 29.2L, Red Cell Distribution Width 20.1H, Platelet Count 277, Neutrophils (%) (Auto) 72.8H, Lymphocytes (%) (Auto) 18.5L, Monocytes (%) (Auto) 6.7H, Eosinophils (%) (Auto) 0.7, Basophils (%) (Auto) 0.6, Neutrophils # (Auto) 6.3, Lymphocytes # (Auto) 1.6, Monocytes # (Auto) 0.6, Eosinophils # (Auto) 0.1, Basophils # (Auto) 0.1, Nucleated Red Blood Cells % (auto) 0.0, Anion Gap 6L, Glomerular Filtration Rate > 60.0, Blood Urea Nitrogen 8#, Creatinine 0.78, Sodium Level 142, Potassium Level 3.7, Chloride Level 112H, Carbon Dioxide Level 24, Calcium Level 8.4L, Magnesium Level 2.0 CBC/BMP Laboratory Tests 11/10/18 04:39 Red Blood Count 4.46, Mean Corpuscular Volume 76.7 L, Mean Corpuscular Hemoglobin 22.4 L, Mean Corpuscular Hemoglobin Concent 29.2 L, Red Cell Distribution Width 20.1 H, Neutrophils (%) (Auto) 72.8 H, Lymphocytes (%) (Auto) 18.5 L, Monocytes (%) (Auto) 6.7 H, Eosinophils (%) (Auto) 0.7, Basophils (%) (Auto) 0.6, Neutrophils # (Auto) 6.3, Lymphocytes # (Auto) 1.6, Monocytes # (Auto) 0.6, Eosinophils # (Auto) 0.1, Basophils # (Auto) 0.1, Calcium Level 8.4 L Microbiology Microbiology 11/07/18 Stool Occult Blood (JERALD) - Final, Complete Discharge Medications Scheduled Amlodipine Besylate (Amlodipine Besylate) 10 Mg Tablet, 10 MG PO DAILY Aspirin (Aspir 81) 81 Mg Tablet.dr, 81 MG PO DAILY for pain Atorvastatin Calcium (Atorvastatin Calcium) 20 Mg Tablet, 20 MG PO DAILY Carvedilol (Carvedilol) 6.25 Mg Tablet, 6.25 MG PO Q12H Escitalopram Oxalate (Escitalopram Oxalate) 10 Mg Tablet, 20 MG PO DAILY Esomeprazole Magnesium (Esomeprazole Magnesium) 20 Mg Capsule.dr, 20 MG PO DAILY, (Reported) Ferrous Sulfate (Ferrous Sulfate) 325 Mg Tablet, 1 TAB PO DAILY Metformin HCl (Metformin HCl ER) 500 Mg Tab.er.24h, 500 MG PO BID, (Reported) Miscellaneous Medications [Patient Comment] , (Reported) PATIENT STATES SHE USED TO TAKE MEDICATION FOR CHOLESTEROL AND HIGH BLOOD PRESSURE... CALLED HER PREVIOUS PHARMACY IN [place], THEY HAVE NO RECORD OF A BP MEDICATION. SHE DID HAVE ATORVASTATIN 80MG. PATIENT HAS NOT TAKEN THESE MEDICATIONS IN AT LEAST 4 MONTHS BUT HAS APPOINTMENT ON 11/09/18. Allergies Coded Allergies: No Known Allergies (Unverified , 11/07/18) MAXINE PEDRAZA MD Nov 10, 2018 13:33
[2018-11-10] MEDS ORDERED: ATOR1TAB21 PO (13:36)
[2018-11-10] MEDS ORDERED: ASPI81TA85 PO (13:36)
--- NOTE | 2018-11-13 14:06 | CR ---
DATE OF CONSULTATION: 11/10/2018 REASON FOR CONSULTATION: Rectal cancer. HISTORY OF PRESENT ILLNESS: The patient is a 63-year-old female who presented to the emergency room on the with complaints of bright red blood per rectum. She has been having multiple episodes of diarrhea recently and has been getting worse the past 4 months. Recently, she started to have some blood in them, thus causing her to come into the emergency room (ER). She just underwent a colonoscopy with Dr. Yanez which did reveal a positive mass in the rectum. I have discussed the case with Dr. Yanez. He said that it was right at the anal verge. He could easily palpate it on rectal exam. She already had a consult with oncology and they are already working her up for this mass and planning to get her started on treatment. She denies any family history of colon cancer or diseases. No recent changes in medications or diet. No previous colonoscopy. No problems with night sweats or chills and no unexplained weight loss. PAST MEDICAL HISTORY: Diabetes, CVA, transient ischemic attack, dyslipidemia, bipolar. PAST SURGICAL HISTORY: Hysterectomy, breast lumpectomy. SOCIAL HISTORY: Smokes two packs a day and denies drug or alcohol abuse. FAMILY HISTORY: Noncontributory. ALLERGIES: None. REVIEW OF SYSTEMS: Pertinent positives and negatives as stated in history of present illness (HPI). HOME MEDICATOINS: Please see med record. PHYSICAL EXAMINATION: General: Alert and oriented times three in no acute distress. Vitals: Temperature 96.7, pulse 61, respirations 18, blood pressure 148/58, pulse ox 92% room air. HEENT: Pupils equally round a nd react light and accommodation. Heart: S1 and S2, regular rate and rhythm. Lungs: Clear to auscultation bilaterally. Abdomen: Soft, nontender, nondistended. No palpable lymph nodes in the groins. Extremities: No clubbing, cyanosis or edema. On rectal exam, there is a little bit of bleeding on digital rectal exam. There is also a palpable mass approximately 2-3 cm from the anal verge. LABORATORY DATA: White count 8.7, hemoglobins 10, platelets 277, potassium 3.7, creatinine 0.78. IMAGING STUDIES: CT abdomen and pelvis showed wall thickening of the descending colon and sigmoid compatible with colitis, as well as a hysterectomy. ASSESSMENT/PLAN: The patient is 63-year-old female with newly diagnosed rectal mass highly suspicious for rectal cancer on colonoscopy with Dr. Yanez. Recommendation at this time is due to the location she should be worked up outpatient, likely will need referral to GI in [place] to have rectal ultrasound done to determine the size and complete the staging workup for this mass. Based on its location she is likely a good candidate for neoadjuvant chemo and radiation. She should see oncology and also have a consult with radiation oncology. Once that is completed she can follow-up with us in the office for further recommendations as needed.
== END 2018-11-10 14:47 | disposition home or self-care (01) | DRG 375 ==
LOC: EEVIPCON 06:48 → M ED 06:48 → M ED INP 06:49 → M MSPAV 14:41 → M PCU 15:42 → OBSVTOIN 11-08 19:19
PROVIDERS: ADMIT Internal Medicine; ATTEND Internal Medicine
PROC: 0DBP8ZX Excision of Rectum, Via Natural or Artificial Opening Endoscopic, Diagnostic (ICD-10-PCS; 2018-11-09)
PROC: 30233N1 Transfusion of Nonautologous Red Blood Cells into Peripheral Vein, Percutaneous Approach (ICD-10-PCS; principal; 2018-11-09 14:15)
DX: C20 Malignant neoplasm of rectum (principal); K62.5 Hemorrhage of anus and rectum; I10 Essential (primary) hypertension; E87.6 Hypokalemia; D50.9 Iron deficiency anemia, unspecified; Z86.73 Personal history of transient ischemic attack (TIA), and cerebral infarction without residual deficits; Z79.899 Other long term (current) drug therapy; Z79.82 Long term (current) use of aspirin; E78.5 Hyperlipidemia, unspecified; F31.9 Bipolar disorder, unspecified; E11.9 Type 2 diabetes mellitus without complications; F17.210 Nicotine dependence, cigarettes, uncomplicated; K44.9 Diaphragmatic hernia without obstruction or gangrene

== ENCOUNTER 2018-11-14 10:09 | Emergency (ER) | payer MEDICARE, MEDICAID ==
[~2018-11-14] VITALS: Ht 152.4 cm; Wt 65.9 kg
--- NOTE | 2018-11-14 11:24 | REP ---
Clinical: Acute headache. Comparison: None. Findings: Age-related atrophy and microvascular ischemic changes are appreciated. The ventricles and sulci are symmetric. Vail-white differentiation is maintained. There is no evidence for acute intracranial hemorrhage, mass/mass effect, pathology or infarction. No extra-axial fluid collection. Calvarium is intact. Paranasal sinuses and mastoid air cells are clear. Impression: Age related atrophy and microvascular ischemic changes. No acute intracranial hemorrhage, infarction, or mass/mass effect. Electronically Signed by Dima Espinoza MD 11/14/2018 11:16 A
[2018-11-14] MEDS ORDERED: CHLO125TA PO (12:53)
[2018-11-14] MEDS ORDERED: SPIR-10 PO (12:53)
[2018-11-14 13:16] VITALS: BP 192/83
--- NOTE | 2018-11-14 19:55 | ECGEPIP ---
[facility] - ED Test Date: 2018-11-14 Pat Name: TRAVON LIVINGSTON Department: Room: - Gender: Female [employer] Bever[employer] Service Manager: masha : 1955 Requested By: Eddie Acharya Order Number: [id number] Reading MD: Latisha Stroud Measurements Intervals [place] Rate: 54 P: 54 VT: 122 QRS: 21 QRSD: 72 T: 31 QT: 421 QTc: 400 Interpretive Statements SINUS BRADYCARDIA baseline artifact may affect interpretation DECREASED RATE 11/07/18 Electronically Signed on 11-14-2018 19:54:58 EDT by Latisha Stroud
[2018-12-04] MEDS ORDERED: EQ 8650T PO (11:57)
[2018-12-04] MEDS ORDERED: LOPE2TAB12 PO (11:57)
== END 2018-11-14 13:33 | disposition home or self-care (01) ==
LOC: EDBD 10:09 → M ED 10:09
DX: R42 Dizziness and giddiness (principal); R00.1 Bradycardia, unspecified; I10 Essential (primary) hypertension; I67.82 Cerebral ischemia; E11.9 Type 2 diabetes mellitus without complications; F17.210 Nicotine dependence, cigarettes, uncomplicated; Z79.82 Long term (current) use of aspirin; Z79.84 Long term (current) use of oral hypoglycemic drugs; Z79.899 Other long term (current) drug therapy

== ENCOUNTER → 2018-11-21 | Outpatient (REF) | payer OTHER, MEDICAID ==
[~2018-11-21] MED LIST changes: +CHLO125TA PO; +SPIR-10 PO
[2018-11-21 17:12] LABS: BASO # 0.1 10^3/uL (0.0-0.2); EOS % 0.5 % (0.0-3.0); HEMATOCRIT 44.6 % (36.0-47.0); HEMOGLOBIN 13.2 g/dl (12.0-15.5); LYMPH # 1.4 10^3/uL (1.5-4.5); LYMPH % 16.9 % (24.0-44.0); MEAN CORPUSCULAR HEMOGLOBIN 23.4 pg (27.0-33.0); MEAN CORPUSCULAR HGB CONC 29.6 g/dl (32.0-36.5); MEAN CORPUSCULAR VOLUME 78.9 fl (80.0-96.0); MONO # 0.6 10^3/uL (0.0-0.8); MONO % 6.7 % (0.0-5.0); NEUTROPHILS # 6.3 10^3/uL (1.8-7.7); NEUTROPHILS % 74.7 % (36.0-66.0); PLATELET COUNT, AUTOMATED 376 10^3/uL (150-450); RED BLOOD COUNT 5.65 10^6/uL (4.00-5.40); WHITE BLOOD COUNT 8.4 10^3/uL (4.0-10.0)
[2018-11-21 17:13] LABS: ALBUMIN 4.1 GM/DL (3.2-5.2); BILIRUBIN,TOTAL 0.5 MG/DL (0.2-1.0); CALCIUM LEVEL 9.6 MG/DL (8.8-10.2); CREATININE FOR GFR 1.01 MG/DL (0.55-1.30); GLOMERULAR FILTRATION RATE 58.6 (>45); POTASSIUM SERUM 3.8 MEQ/L (3.5-5.1); TOTAL PROTEIN 8.4 GM/DL (6.4-8.2)
== END ==
LOC: M LAB REF 16:36
PROVIDERS: ATTEND Family Medicine
DX: D01.2 Carcinoma in situ of rectum (principal); D64.9 Anemia, unspecified

== ENCOUNTER → 2018-12-04 | Outpatient (CLI) | payer MEDICARE, MEDICAID ==
[~2018-12-04] MED LIST changes: +EQ 8650T PO; +LOPE2TAB12 PO
--- NOTE | 2018-12-07 08:55 | RADONC ---
RADIATION ONCOLOGY CONSULTATION NOTE DATE: 12/04/2018 CHART NUMBER: [id number] DIAGNOSIS: Anal carcinoma. STAGE: In progress. ECOG PERFORMANCE STATUS: 1. CONSULTATION NOTE: Ms. 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 HISTORY OF PRESENT ILLNESS: The patient was in the usual state of health but has had several episodes of bleeding from the rectum and diarrhea. This has gone on for about 4 months. The patient was seen in the emergency room and subsequently seen by Dr. Yanez. A colonoscopy was done and a tumor was found at the anal verge. Biopsy undertaken 11/13/2018 was positive for a poorly differentiated squamous cell carcinoma. The section showed anorectal mucosa with foci of squamous cell carcinoma in situ as well. A CT scan of the abdomen and pelvis was undertaken which showed some wall thickening in the descending colon and sigmoid colon which could indicate colitis and a clinical correlation was recommended. There was no evidence of lymphadenopathy present. The patient is now being referred to us for further workup and recommendations for coordinate treatments. ALLERGIES: The patient has no known drug allergies. PAST MEDICAL HISTORY: The patient's past medical history is positive for anxiety, arthritis, bipolar disorder, coronary artery disease, depression, diabetes, headaches, hepatitis, hypertension, panic attacks, a stroke and a history of TIAs. She also had a hysterectomy as well as a right breast lumpectomy for a benign lesion. SOCIAL HISTORY: The patient reports that she continues to smoke cigarettes. He does not abuse alcohol. FAMILY HISTORY: The patient's family history is positive for a grandfather with stomach cancer. REVIEW OF SYSTEMS: The patient's review of systems is positive for headaches, dizziness, anxiety. She reports that she has had some weight loss, rectal bleeding and diarrhea, weakness in arms and legs, decreased energy, dental problems with many rotten teeth. She denies nausea, vomiting, fevers, chills, night sweats, diplopia, chest pain, shortness of breath or bone pain. PHYSICAL EXAMINATION: The patient is a well-developed, well-nourished, female in no acute distress. HEENT exam is normocephalic, atraumatic. Extraocular movements are intact. There is no palpable cervical, supraclavicular, infraclavicular, axillary, or inguinal lymphadenopathy present. Lungs are clear to auscultation and percussion. Heart has a regular rate and rhythm. Abdomen is benign with no hepatosplenomegaly, masses, or tenderness. Skeletal examination reveals no tenderness to pressure or percussion of the bony skeleton. Extremities reveal no clubbing, cyanosis, or edema. Neurologic exam is grossly intact, as is the remainder of the physical examination. Rectal examination reveals a lesion present clearly palpable at the anal verge. It appears to extend only a short distance of a few centimeters. MEDICAL NECESSITY: IMRT/IGRT is clinically indicated for the highly conformal dose planning required. The target volume is in close proximity to critical structures such as the rectum, bladder, small bowel and femoral heads. The volume of interest must be covered with narrow margins to adequately protect immediately adjacent structures. The plan requires interpretation of complex testing such as CT localization. As noted above, special planning (IMRT) and localizing (IGRT) is required and essential to maximally protect sensitive normal tissue structures which cannot be accomplished using conventional three-dimensional planning. I believe this patient is a candidate for external beam radiation therapy and I have so informed her. I have discussed with the patient and her caregiver in detail the potential benefits as well as possible acute and chronic sequelae of external beam radiation therapy. We have discussed logistics of treatment planning, simulation and subsequent fractionated daily radiation treatments. I have scheduled the patient for a PET scan to be undertaken for further staging. Recommendations may be changed pending the results of that study. In addition, the patient is scheduled for anal rectal ultrasound which has been scheduled by Dr. Maya. This may also lead to subsequent revisions of overall recommendations. The patient reports that she has multiple rotten teeth that Dr. Maay is referred her to have those teeth extracted. We will see if we can expedite this. I have placed the patient on our list for multidisciplinary tumor conference to discuss this case. I will be coordinating her care with her medical oncologist. In light of the fact that this patient has had active bleeding for a protracted period of time I do not wish to delay treatment too long for dental work which right now may take months. I have set her up with our nurse navigator to expedite this issue. Indeed treatment of her malignancy is paramount at this point. Thank you for allowing us to participate in the care of this very pleasant woman. If I could be of any further assistance or provide you any information, please free to contact me anytime. cc: DO Adriana Ivan MD David T. OuYang, MD Gerald Weinstein, MD
== END ==
LOC: M ONCR 09:32
PROVIDERS: ATTEND Radiology Radiation Oncology
DX: C20 Malignant neoplasm of rectum (principal)

== ENCOUNTER → 2018-12-04 | Outpatient (CLI) | payer MEDICARE, MEDICAID ==
--- NOTE | 2018-12-04 12:22 | REP ---
Low-dose lung screening CT of the chest: There are no comparison CT studies. There is a comparison plain film portable study of the chest dated 11/07/2018. The study is performed without IV contrast. The images are presented at lung windowing only. There is a 5 mm nodule in the superior segment of the right lower lobe on image 35. I suspect this nodule is partially calcified. There are no other nodules or masses. There are no infiltrates or pleural effusions. Impression: The 5 mm right lower lobe lung nodule is a category II lung nodule with the probability of malignancy less than 1%. Depending on risk factors, annual follow-up low-dose lung screening CT is recommended. Electronically Signed by Adolfo Fonseca MD 12/04/2018 12:14 P
== END ==
LOC: M RAD 09:20
PROVIDERS: ATTEND Internal Medicine Cardiovascular Disease
DX: Z87.891 Personal history of nicotine dependence (principal); Z12.2 Encounter for screening for malignant neoplasm of respiratory organs

== ENCOUNTER → 2018-12-06 | Outpatient (CLI) | payer MEDICARE, MEDICAID ==
[2018-12-06 10:45] LABS: ALBUMIN 4.2 GM/DL (3.2-5.2); CALCIUM LEVEL 9.8 MG/DL (8.8-10.2); CREATININE FOR GFR 1.16 MG/DL (0.55-1.30); GLOMERULAR FILTRATION RATE 49.9 (>45); POTASSIUM SERUM 3.7 MEQ/L (3.5-5.1)
== END ==
LOC: M LAB 09:33
PROVIDERS: ATTEND Internal Medicine Cardiovascular Disease
DX: I10 Essential (primary) hypertension (principal)

== ENCOUNTER 2018-12-07 14:03 | Outpatient (RCR) | payer MEDICARE, MEDICAID ==
[~2018-12-07 14:03] MED LIST changes: +METF-791 PO; -METF500T4 PO
--- NOTE | 2018-12-11 15:10 | RADONC ---
RADIATION ONCOLOGY SIMULATION NOTE DATE: 12/07/2018 CHART NUMBER: [id number] SIMULATION NOTE: Ms. Monique was taken to the CT scan for CT simulation of her anal field. CT was accomplished without difficulty or discomfort. Radiation treatment planning is underway and radiation treatments will begin subsequently. An immobilization device was created and was created without difficulty or discomfort. It will be used throughout the course of treatment. I was physically present throughout the course of CT simulation.
--- NOTE | 2018-12-14 07:09 | RADONC ---
RADIATION ONCOLOGY PROGRESS NOTE DATE: 12/12/2018 CHART #: [id number] Ms. Monique was presented at our multidisciplinary tumor conference today. We reviewed the patient's PET scan which does show a hypermetabolic site in her liver near the skin surface. I have discussed the possibility of a biopsy of that lesion for further evaluation. I have scheduled the patient to be seen by our radiology department for a needle biopsy. I have reviewed this with Dr. Vila who believes it would be quite easy to biopsy and get a diagnosis of this liver spot. Overall, she has been simulated and our radiation treatment plan is complete. I truly believe that even if there is liver metastasis, the need to control the anal lesion should be a priority. Indeed, if anal cancer becomes uncontrollable, quality of life will be sacrificed, the patient may have resulting significant pain and other issues related to her uncontrolled pelvic mass. We can obtain this biopsy while undergoing local control treatment for her pelvic issues. Once again, if we do not control her anal cancer, she undoubtedly will develop significant pain, perhaps bowel obstruction and bleeding. Therefore, I think this is critical that we do not delay treatments unnecessarily. Once a diagnosis of this liver nodule is made, further recommendations can be undertaken and of course I defer to the expert opinion of our colorectal physicians with regards to the possibility of metastasectomy versus systemic therapy. MTDD
[2018-12-21] MEDS ORDERED: CHLO25TA GT (13:34)
== END 2018-12-15 ==
LOC: M ONCR 14:03
PROVIDERS: ATTEND Radiology Radiation Oncology
DX: C21.0 Malignant neoplasm of anus, unspecified (principal)

== ENCOUNTER → 2018-12-11 | Outpatient (CLI) | payer MEDICARE, MEDICAID ==
[~2018-12-11] MED LIST changes: -METF-791 PO; +METF500T4 PO
--- NOTE | 2018-12-11 17:45 | REP ---
Body PET CT scan for staging of anal carcinoma: Comparison is the abdomen and pelvis CT dated 11/07/2018. Whole-body scanning is performed from skull base to the upper thighs. Neck and supraclavicular areas: There is uptake in adenoid and tonsillar tissues, particularly on the left. Uptake in this area is usually artifact, however, the standard uptake value measures 9.0 and is quite high. There are an no other hypermetabolic foci in the neck and supraclavicular areas. Chest: There is a fixed hiatal hernia. Just above the hiatal hernia. There is hypermetabolic uptake in the distal esophagus with a standard uptake value of 4.75. There is uptake in the left paraspinous muscles, likely artifact. The standard uptake values 6.3. There is hypermetabolic uptake in the right subscapularis muscle, likely artifact. The standard uptake value is 4.1. Abdomen, pelvis and upper thighs: There is hypermetabolic uptake throughout the entire colon from the cecum to the rectosigmoid colon. Standard uptake value in the ascending colon is 12.2. Standard uptake value in the transverse colon is 10.3. Standard uptake value in the descending colon is 16.8. Standard uptake value in the sigmoid colon is 11.27. Standard uptake value in the rectum is 18.4. There is no uptake in the small bowel. Upon review of the comparison abdomen and pelvis CT there was wall thickening of the descending colon and sigmoid colon, compatible with colitis in the appropriate clinical setting. However, neoplasm is also a possibility. There is uptake in a normal size pelvic node just distal to the aortic bifurcation with a standard uptake value of 9.4. There is no other christina uptake in the abdomen or pelvis. There is a hypermetabolic focus in the hepatic right lobe, subcapsular, with a standard uptake value of 11.6. This measures 2.3 cm in greatest diameter. No other hepatic foci are identified. There are no adrenal foci. Impression: There is marked hypermetabolic uptake throughout the entire colon from cecum to rectum. This is a suspicious for neoplasm although colitis may be a possibility. There is a hypermetabolic focus in the right lobe of the liver, subcapsular. There is uptake in a single normal size pelvic node in the midline. There is uptake in the distal esophagus just above the fixed hiatal hernia. There is uptake in left paraspinous muscles and in the right subscapularis muscle, likely artifact. There is uptake in adenoid and tonsillar tissues, particularly on the left. This is usually artifact, however, the standard uptake value is quite high. The study is performed with 9.1 mCi of F 18 FDG. Electronically Signed by Adolfo Fonseca MD 12/11/2018 05:36 P
== END ==
LOC: M PLARAD 11:34
PROVIDERS: ATTEND Radiology Radiation Oncology
DX: C20 Malignant neoplasm of rectum (principal)
CPT/HCPCS: 78815; A9552

== ENCOUNTER 2018-12-23 06:59 | Emergency (ER) | payer MEDICARE, MEDICAID ==
[~2018-12-23] VITALS: Ht 154.9 cm; Wt 60.9 kg
[2018-12-23 06:59] VITALS: BP 131/68
[~2018-12-23 06:59] MED LIST changes: +CHLO25TA PO; +METF-791 PO; -METF500T4 PO
[2018-12-23] MEDS ORDERED: NORC1TAB7 PO (07:28)
[2018-12-23] MEDS ORDERED: AUGM875T28 PO (07:28)
[2018-12-23] MEDS ORDERED: AUGMENTIN 875 MG TAB PO ONE (07:30)
[2018-12-23] MEDS ORDERED: NORCO, ANEXSIA 5/325MG TABLET (HYDROcodone/ACETAMINOPHEN) PO ONE (07:30)
[2018-12-31] MEDS ORDERED: ESCI10TA2 PO (11:05)
== END 2018-12-23 07:43 | disposition home or self-care (01) ==
LOC: M ED 06:59
DX: K08.89 Other specified disorders of teeth and supporting structures (principal); Z85.038 Personal history of other malignant neoplasm of large intestine; K21.9 Gastro-esophageal reflux disease without esophagitis; I63.9 Cerebral infarction, unspecified; F31.9 Bipolar disorder, unspecified; E78.5 Hyperlipidemia, unspecified; F17.200 Nicotine dependence, unspecified, uncomplicated; Z79.899 Other long term (current) drug therapy; I10 Essential (primary) hypertension; E11.9 Type 2 diabetes mellitus without complications

== ENCOUNTER → 2018-12-25 | Outpatient (CLI) | payer MEDICARE, MEDICAID ==
[~2018-12-25] MED LIST changes: +AMOX500C PO; +ASPI81TA26 PO; +AUGM875T28 PO; +HYDR-3713 PO; +LIDOCAINE 1% MDV 20ML VIAL As Ordered ONE; +MIDO5TA PO; +NICO14DI6 TD; +NORC1TAB7 PO; +OMEP40CA2 PO; +[UNRECOGNIZED DRUG - CODE] IV; +[UNRECOGNIZED DRUG - CODE] IV; +chemotherapy IV
[2018-12-25 12:27] VITALS: BP 141/67
--- NOTE | 2018-12-26 10:00 | REP ---
ULTRASOUND-GUIDED LIVER BIOPSY The procedure was performed under the direct supervision of Dr. Vail. The patient has a history of A hypermetabolic focus in the right lobe of the liver seen on a previous PET scan dated 12/11/2018. The risks and benefits of the procedure were explained to the patient and informed consent was obtained. The right liver mass was localized using ultrasound guidance. The skin was prepped and draped in a sterile fashion. 1% lidocaine was used as a local anesthetic. Using ultrasound guidance a 19/20 gauge coaxial needle biopsy system was inserted and advanced into the mass. Six core biopsy samples were obtained and sent to lab. The patient tolerated the procedure well and there were no immediate complications. After the appropriate amount of monitored convalescence the patient was discharged from the department. Reviewed by JOEL To 12/25/2018 04:37 P Electronically Signed by Adolfo Vail MD 12/26/2018 09:50 A
== END ==
LOC: M IRPRO 09:48
DX: C22.0 Liver cell carcinoma (principal); C21.0 Malignant neoplasm of anus, unspecified

== ENCOUNTER → 2019-01-01 | Outpatient (CLI) | payer MEDICARE, MEDICAID ==
[~2019-01-01] MED LIST changes: +BUPIVACAINE HCL 0.5% 10 ML VIAL As Ordered ONE; -LIDOCAINE 1% MDV 20ML VIAL As Ordered ONE; +LIDOCAINE 2% MDV 20 ML VIAL As Ordered ONE; +MIDAZOLAM INJ 2 MG/2 ML VIAL (J2250) As Ordered ONE; +ONDANSETRON 4MG/2ML VIAL (J2405) As Ordered ONE; +ceFAZolin 1GM INJ (J0690 PER 500MG) As Ordered ONE; +diphenhydrAMINE INJ 50MG/ML VIAL (J1200) As Ordered ONE; +fentaNYL 100 MCG/2 ML INJECTION (J3010) As Ordered ONE
[2019-01-01 12:20] VITALS: BP 131/60
--- NOTE | 2019-01-01 21:44 | ROOPDOC ---
[facility] Report Of Operation Report of Operation DATE OF PROCEDURE: 01/01/2019 PREOPERATIVE DIAGNOSIS: Rectal cancer requiring central venous access for chemotherapy. POSTOPERATIVE DIAGNOSIS: Rectal cancer requiring central venous access for chemotherapy. PROCEDURE: Ultrasound guided right internal jugular vein cannulation. Fluoroscopic guided right internal jugular vein tunneled central venous catheter with subcutaneous port placement with placement of a power injectable [employer] [place] Power Port with 23 centimeter length catheter. SURGEON: Dr. Laith Barnes M.D. STUDIO SALES ASSOCIATE: Anil Foster ANESTHESIA: Local with 20 mL of 2% lidocaine mixed with 0.5% Marcaine. SEDATION TIME: None. ANTIBIOTICS: Ancef 2 g FLUOROSCOPY TIME: 0.1 minutes. CONTRAST: None. ESTIMATED BLOOD LOSS: 10 mL. IV FLUID: 50 mL. COMPLICATIONS: None. DRAINS: None. SPECIMENS: None. IMPLANTS: Right internal jugular vein tunneled central venous catheter with subcutaneous port placement using a [employer] [place] Power Port which is power injectable. INDICATION: Patient is a 63-year-old female with rectal cancer who requires central venous access for installation of chemotherapy and laboratory draws. Patient will undergo a right tunneled central venous catheter placement with subcutaneous port. Procedure was described and explained to the patient in detail including drawing of pictures showing the procedure and anatomy associated with insertion of the tunneled central venous catheter was subcutaneous port. Risks, benefits, and alternative treatment options were discussed with the patient. Alternative treatment options included, but were not limited to, no intervention. Benefits included, but were not limited to, access for chemotherapy infusion centrally, avoiding recurrent venous cannulations , IV placements and sclerosis of peripheral veins. Risks included, but were not limited to, infection, bleeding, pneumothorax, hemothorax, possible need for further open surgical intervention, renal failure requiring hemodialysis, failure of the tunneled central venous catheter with subcutaneous port to function requiring evaluation, revision and/or replacement, adverse and/or allergic reaction to the sedation medications and/or local anesthetics, anesthetic and sedation complication, possible need for transfusion of blood products, allergic reaction and/or complication from the prepping and draping materials, bruising, scarring, cerebrovascular accident, myocardial infarction, pulmonary embolus, deep venous thrombosis, poor satisfaction, poor results, poor outcome, loss of limb and loss of life. Risks of not performing the port insertion included but were not limited to inability to gain access for chemotherapy, inability to gain access for blood draws and laboratory evaluation, sclerosis and thrombophlebitis of peripheral veins and pain associated with continued peripheral cannulations. Patient's questions were answered. Patient voices understanding of these risks, benefits, and alternative treatment options. Patient voices acceptance of the risks associated with placement of a central venous tunneled catheter with subcutaneous port placement and consents to proceed with tunneled central venous catheter with subcutaneous port placement. No guarantees or promises were made to the patient regarding the results or outcome of the procedure. DESCRIPTION OF PROCEDURE: Patient was taken to the angiography suite, placed supine on the angiography room table, and prepped and draped in a standard surgical fashion. A time-out was conducted by myself and the team members involved in the procedure, confirming the correct procedure, patient, and laterality. Ultrasound was then used to evaluate the right internal jugular vein, which was noted to be easily compressible, widely patent, and free of thrombus. Ultrasound was then used to guide cannulation of the right internal jugular vein with a micropuncture needle with real-time concurrent visualization of the entry of the needle into the right internal jugular vein with a hardcopy image preserved. The skin overlying the right internal jugular vein was anesthetized with 2% lidocaine mixed with 0.5% Marcaine prior to cannulation. Once the right internal jugular vein was cannulated, the micropuncture wire was advanced through the micropuncture needle, which was up-sized to a micropuncture sheath. A J wire was advanced through the micropuncture sheath. The right internal jugular vein was then dilated under fluoroscopic guidance, and a #8-Moldovan introducer sheath was positioned through the right internal jugular vein into the superior vena cava. The wire was removed, and the #8-Moldovan sin gle lumen catheter, which had been tunneled from a puncture wound in the right chest and brought out at the puncture wound at the right internal jugular vein entry site, was advanced through the introducer sheath under fluoroscopic guidance. The introducer sheath was then removed, and the catheter was positioned with the tip in the superior vena cava/right atrial junction under fluoroscopic guidance. The catheter was cut to a length of 23 cm and attached to the port. A pocket was created in the right chest after anesthetizing the overlying tissue with 2% lidocaine mixed with 0.5% Marcaine. The port was placed in the pocket and cannulated using an access needle. The port was noted to aspirate and flush easily and then was flushed with heparinized saline. The incision in the chest was closed using # 4-0 Monocryl suture in inverted interrupted fashion. The puncture wound in the right neck was closed using a #4-0 Monocryl in inverted interrupted fashion. Steri-Strips and dressings were applied. Patient tolerated the procedure well. All instrument, sponge, and needle counts were correct at the end of the case. There were no complications. Dr. Barnes was present for and directed the entire case. Patient was transferred to the recovery area and subsequently discharged in stable condition. The tunneled central venous catheter with subcutaneous port is stable for use for access. RADIOLOGIC SUPERVISION AND INTERPRETATION: The ultrasound showed the right internal jugular vein to be easily compressible, widely patent, and free of thrombus. Ultrasound was used to guide cannulation of the right internal jugular vein with real-time concurrent visualization of the entry of the needle into the right internal jugular vein. The right internal jugular vein was then dilated under fluoroscopic guidance with a #8-Moldovan introducer sheath placed under fluoroscopic guidance. The 8 Moldovan single lumen catheter was advanced through the introducer sheath positioned with the tip in the superior vena/right atrial junction using fluoroscopic guidance with final fluoroscopic image showing the catheter and port to be in good position and good alignment with the tip in the superior vena cava/right atrial junction with no pneumo- or hemothorax noted. The tunneled central venous catheter with subcutaneous port is stable for use. Leo Barnes MD Jan 01, 2019 21:44
== END ==
LOC: M IRPRO 11:17
PROVIDERS: ATTEND Internal Medicine Hematology & Oncology
DX: C20 Malignant neoplasm of rectum (principal)
CPT/HCPCS: 36415; 36563; 76937; 77001; 80053; 82378; 85027; 96413; C1788; C1894; C8957; G0463; J0690; J2405; J9190; J9280

== ENCOUNTER 2019-01-02 10:25 | Inpatient (IN) | payer MEDICARE, MEDICAID ==
[~2019-01-02] VITALS: Ht 154.9 cm; Wt 60.9 kg
[~2019-01-02 10:25] MED LIST changes: -AMOX500C PO; -ASPI81TA26 PO; -BUPIVACAINE HCL 0.5% 10 ML VIAL As Ordered ONE; +FLUOROURACIL IV SCH; -HYDR-3713 PO; -LIDOCAINE 2% MDV 20 ML VIAL As Ordered ONE; -MIDAZOLAM INJ 2 MG/2 ML VIAL (J2250) As Ordered ONE; -MIDO5TA PO; -NICO14DI6 TD; -OMEP40CA2 PO; -ONDANSETRON 4MG/2ML VIAL (J2405) As Ordered ONE; -[UNRECOGNIZED DRUG - CODE] IV; -[UNRECOGNIZED DRUG - CODE] IV; -ceFAZolin 1GM INJ (J0690 PER 500MG) As Ordered ONE; -chemotherapy IV; -diphenhydrAMINE INJ 50MG/ML VIAL (J1200) As Ordered ONE; -fentaNYL 100 MCG/2 ML INJECTION (J3010) As Ordered ONE
[2019-01-02] MEDS ORDERED: chemotherapy IV (10:57)
[2019-01-02] MEDS ORDERED: AMOX500C PO (10:57)
[2019-01-02] MEDS ORDERED: OMEP40CA2 PO ×2 (10:57→15:03)
[2019-01-02] MEDS ORDERED: SPIR-10 PO ×2 (10:57→15:03)
[2019-01-02] MEDS ORDERED: NS 500 ML IV ONE (12:45)
[2019-01-02 13:21] LABS: BASO % 0.1 % (0.0-1.0); HEMATOCRIT 37.6 % (36.0-47.0); HEMOGLOBIN 12.1 g/dl (12.0-15.5); LYMPH # 0.7 10^3/uL (1.5-5.0); LYMPH % 3.8 % (24.0-44.0); MEAN CORPUSCULAR HEMOGLOBIN 27.6 pg (27.0-33.0); MEAN CORPUSCULAR HGB CONC 32.2 g/dl (32.0-36.5); MEAN CORPUSCULAR VOLUME 85.8 fl (80.0-96.0); MONO # 0.5 10^3/uL (0.0-0.8); MONO % 3.1 % (0.0-5.0); NEUTROPHILS # 16.1 10^3/uL (1.5-8.5); NEUTROPHILS % 92.5 % (36.0-66.0); PLATELET COUNT, AUTOMATED 343 10^3/uL (150-450); RED BLOOD COUNT 4.38 10^6/uL (4.00-5.40); WHITE BLOOD COUNT 17.4 10^3/uL (4.0-10.0)
[2019-01-02 13:53] LABS: ALBUMIN 3.9 GM/DL (3.2-5.2); ALT/SGPT 16 U/L (12-78); BILIRUBIN,TOTAL 0.3 MG/DL (0.2-1.0); BLOOD UREA NITROGEN 25 MG/DL (7-18); CALCIUM LEVEL 9.8 MG/DL (8.8-10.2); CARBON DIOXIDE LEVEL 22 MEQ/L (21-32); CHLORIDE LEVEL 104 MEQ/L (98-107); CK-MB VALUE MASS 1.3 NG/ML (<3.6); CPK CREATINE PHOSPHOKINASE 72 U/L (26-192); CREATININE FOR GFR 0.93 MG/DL (0.55-1.30); GLOMERULAR FILTRATION RATE > 60.0 (>45); GLUCOSE, FASTING 131 MG/DL (70-100); MAGNESIUM LEVEL 1.8 MG/DL (1.8-2.4); MB/CK RELATIVE INDEX 1.81 (< OR =4); NT-PRO BNP 360 PG/ML (<125); POTASSIUM SERUM 4.8 MEQ/L (3.5-5.1); SODIUM LEVEL 136 MEQ/L (136-145); THYROID STIMULATING HORMONE 0.856 uIU/ML (0.358-3.740); TROPONIN I < 0.02 NG/ML (< 0.10)
--- NOTE | 2019-01-02 14:04 | REP ---
REASON FOR EXAM: Seizure-like activity. History of carcinoma. COMPARISON: 11/14/2018 There has been no significant change from the prior exam. The ventricles and sulci are unchanged. There are no extra-axial fluid collections. There is no evidence of acute intracranial hemorrhagic or nonhemorrhagic event. There is no shift of the midline structures. Posterior fossa is unchanged. The imaged paranasal sinuses and mastoid air cells are within normal limits. There is no skull fracture or destructive bony lesion. IMPRESSION: No acute disease or significant change compared to the prior exam. Electronically Signed by You Styles DO 01/02/2019 02:21 P
[2019-01-02] MEDS ORDERED: HYDR-3713 PO (15:03)
[2019-01-02] MEDS ORDERED: AMLO10TA5 PO (15:03)
[2019-01-02] MEDS ORDERED: [UNRECOGNIZED DRUG - CODE] IV (15:03)
[2019-01-02] MEDS ORDERED: FERR1TAB8 PO (15:03)
[2019-01-02] MEDS ORDERED: ASPI81TA26 PO (15:03)
[2019-01-02] MEDS ORDERED: ATOR1TAB21 PO (15:03)
[2019-01-02] MEDS ORDERED: ESCI10TA2 PO (15:03)
[2019-01-02] MEDS ORDERED: NICO14DI6 TD (15:03)
[2019-01-02] MEDS ORDERED: CHLO25TA PO (15:03)
[2019-01-02] MEDS ORDERED: [UNRECOGNIZED DRUG - CODE] IV (15:03)
[2019-01-02] MEDS ORDERED: GLUCOSE 4 GM CHEW TABLET PO PRN (15:30)
[2019-01-02] MEDS ORDERED: ACETAMINOPHEN TAB 650MG DOSE (2X325MG) PO PRN (15:30)
[2019-01-02] MEDS ORDERED: FLUOROURACIL IV SCH (15:30)
[2019-01-02] MEDS ORDERED: DEXTROSE 50% 50 ML SYRINGE IV PRN (15:30)
[2019-01-02] MEDS ORDERED: GLUCAGON FOR INJ 1 MG VIAL (J1610) SC PRN (15:30)
--- NOTE | 2019-01-02 15:44 | HPEPDOC ---
[facility] Medical History & Physical Date of Admission Jan 02, 2019 Date of Service: Jan 02, 2019 History and Physical CHIEF COMPLAINT: Syncope HISTORY OF PRESENT ILLNESS: Patient is a 63F with PMH recently diagnosed Rectal cancer diagnosed in October this year now on Chemo and RT, HTN, CVA/TIA, HLD, Bipolar disorder, DM brought [facility] the [facility] from [facility] for concerns of syncope and seizures. She stated that she was walking to the bathroom when she felt a little dizzy and was lowered into a chair, does not think that she had actually passed out. Members at prison stated that he eyes rolled back and was stiff, not answering questions for about 30 seconds. Reported no bowel or urinary incontinence or significant confusion after the event. Stated that she does get dizzy from time to time when getting up and walking around but has not been this severe. She states that she just started Radiation therapy for her rectal cancer on Monday and in-home chemo infusion yesterday but otherwise no other acute changes. She current feels well now, reports some frontal headaches that is chronic in nature but no other particular complaints including dizziness, chest pain, visual changes, weakness/numbness. PAST MEDICAL HISTORY: Refer to [facility] PAST SURGICAL HISTORY: Hysterectomy Breast nodule resection SOCIAL HISTORY: Smokes 1-1.5ppd, quit about 1 week prior now using nicotine patch. Used to abuse narcotics but does not anymore. Denies alcohol use. FAMILY HISTORY: Father- [place] Brothers- DM, HTN, CVA ALLERGIES: Please see below. REVIEW OF SYSTEMS: 10 point review of system negative except as stated in [facility] HOME MEDICATIONS: Please see below. PHYSICAL EXAMINATION: General: No acute distress, Alert Eyes: Normal sclera, EOMI, CHAUNCEY HENT: Atraumatic, neck supple, moist mucous membranes Cardiovascular: Normal rate, normal rhythm. No murmurs appreciated. Pulmonary: Clear to auscultation b/l, no wheezing GI: Soft, nontender, nondistended Skin: Warm and dry. Erythematous facial patches/scaly. Neuro: CN grossly intact. No focal deficits. Strengths equal b/l. Psych: oriented x 3 LABORATORY DATA: See below. IMAGING: CT head- COMPARISON: 11/14/2018 There has been no significant change from the prior exam. The ventricles and sulci are unchanged. There are no extra-axial fluid collections. There is no evidence of acute intracranial hemorrhagic or nonhemorrhagic event. There is no shift of the midline structures. Posterior fossa is unchanged. The imaged paranasal sinuses and mastoid air cells are within normal limits. There is no skull fracture or destructive bony lesion. IMPRESSION: No acute disease or significant change compared to the prior exam. MICROBIOLOGY: Please see below. ASSESSMENT AND PLAN: 1. Syncope vs. seizures - Likely orthostatic syncope given chronic in nature with positional changes, less likely to be seizure disorder. - No bowel/urinary incontinence, postictal confusion, tongue injuries. Reported some tremors and unsteadiness but no significant jerking. - CT head showed no acute changes. Patient has no focal deficits at this time. - c/w Neurochecks. Orthostatic negative in ER, but reportedly was + before. - Just started on chemo infusion yesterday, unsure if this may have caused orthostatic to be worse. - PT. Recommend slow positional changes at home, if persistent may need to discuss medication changes. - Likely can be d/c in AM and follow up with Neurology. 2. Rectal cancer - Started on RT monday and chemo Monday. - Follows with Dr. Ramesh, reportedly can do RT here if needed. Likely can be discharged in AM to get RT done in office instead. - Also Follows with Dr. Maya, needs continue following post discharge. 3. HTN - Monitor BP. - Resume home meds. 4. Bipolar disorder with depression - Resume home meds. 5. DM - Hold metformin. - ISS only at this time. Code status: Full code Vital Signs Vital Signs Date Time Temp Pulse Resp B/P (MAP) Pulse Ox O2 Delivery O2 Flow Rate FiO2 01/02/19 14:46 133/63 (86) 01/02/19 14:45 63 99 01/02/19 10:44 Room Air 01/02/19 10:27 97.4 20 Laboratory Data Labs 24H Laboratory Tests 2 01/02/19 13:00: Immature Granulocyte % (Auto) 0.5, White Blood Count 17.4H, Red Blood Count 4.38, Hemoglobin 12.1, Hematocrit 37.6, Mean Corpuscular Volume 85.8, Mean Corpuscular Hemoglobin 27.6, Mean Corpuscular Hemoglobin Concent 32.2, Red Cell Distribution Width 23.0H, Platelet Count 343, Neutrophils (%) (Auto) 92.5H, Lymphocytes (%) (Auto) 3.8L, Monocytes (%) (Auto) 3.1, Eosinophils (%) (Auto) 0.0, Basophils (%) (Auto) 0.1, Neutrophils # (Auto) 16.1H, Lymphocytes # (Auto) 0.7L, Monocytes # (Auto) 0.5, Eosinophils # (Auto) 0.0, Basophils # (Auto) 0.0, Nucleated Red Blood Cells % (auto) 0.0, Urine Color STRAW, Urine Appearance CLEAR, Urine pH 6.0, Urine Specific [place] 1.003, Urine Protein NEGATIVE, Urine Glucose (UA) NEGATIVE, Urine Ketones NEGATIVE, Urine Blood NEGATIVE, Urine Nitrite NEGATIVE, Urine Bilirubin NEGATIVE, Urine Urobilinogen 0.2, Urine Leukocyte Esterase TRACEH, Urine WBC (Auto) 1, Urine RBC (Auto) 2, Urine Hyaline Casts (Auto) 0, Urine Bacteria (Auto) NEGATIVE, Urine Squamous Epithelial Cells 2, Urine Sperm (Auto) , Anion Gap 10, Glomerular Filtration Rate > 60.0, Blood Urea Nitrogen 25H, Creatinine 0.93, Sodium Level 136, Potassium Level 4.8, Chloride Level 104, Carbon Dioxide Level 22, Calcium Level 9.8, Aspartate Amino Transf (AST/SGOT) 13, Alanine Aminotransferase (ALT/SGPT) 16, Total Creatine Kinase 72, Alkaline Phosphatase 83, Total Bilirubin 0.3, Total Protein 8.0, Albumin 3.9, Magnesium Level 1.8, Creatine Kinase MB 1.3, Creatine Kinase MB Relative Index 1.81, Troponin I < 0.02, PY-Jlk-N-Type Natriuretic Peptide 360H, Albumin/Globulin Ratio 0.95L, Thyroid Stimulating Hormone (TSH) 0.856 CBC/BMP Laboratory Tests 01/02/19 13:00 Red Blood Count 4.38, Mean Corpuscular Volume 85.8, Mean Corpuscular Hemoglobin 27.6, Mean Corpuscular Hemoglobin Concent 32.2, Red Cell Distribution Width 23.0 H, Neutrophils (%) (Auto) 92.5 H, Lymphocytes (%) (Auto) 3.8 L, Monocytes (%) (Auto) 3.1, Eosinophils (%) (Auto) 0.0, Basophils (%) (Auto) 0.1, Neutrophils # (Auto) 16.1 H, Lymphocytes # (Auto) 0.7 L, Monocytes # (Auto) 0.5, Eosinophils # (Auto) 0.0, Basophils # (Auto) 0.0, Calcium Level 9.8, Aspartate Amino Transf (AST/SGOT) 13, Alanine Aminotransferase (ALT/SGPT) 16, Total Creatine Kinase 72, Alkaline Phosphatase 83, Total Bilirubin 0.3, Total Protein 8.0, Albumin 3.9 Microbiology Microbiology 01/02/19 Blood Culture, Received Pending 01/02/19 Blood Culture, Received Pending 01/02/19 Urine Culture, Received Pending Home Medications Scheduled Amlodipine Besylate (Amlodipine Besylate) 10 Mg Tablet, 10 MG PO DAILY Aspirin (Aspirin EC) 81 Mg Tablet.dr, 81 MG PO DAILY Atorvastatin Calcium (Atorvastatin Calcium) 20 Mg Tablet, 20 MG PO DAILY Chlorthalidone (Chlorthalidone) 25 Mg Tablet, 12.5 MG PO DAILY Escitalopram Oxalate (Escitalopram Oxalate) 10 Mg Tablet, 10 MG PO DAILY Ferrous Sulfate (Ferrous Sulfate) 325 Mg Tablet, 325 MG PO DAILY Fluorouracil (Fluorouracil) 500 Mg/10 Ml Vial, 6,720 MG IV ASDIRECTED CURRENTLY HAS THIS RUNNING THROUGH CENTRAL LINE UNTIL MONDAY (01/05/19) Metformin HCl (Metformin HCl ER) 500 Mg Tab.er.24h, 500 MG PO BID Mitomycin (Mitomycin) 20 Mg Vial, 16 MG IV ASDIRECTED Nicotine (Nicotine Patch) 14 Mg Patch.td24, 14 MG TD DAILY CURRENTLY HAS PATCH APPLIED TO LEFT SHOULDER THAT WAS SUPPOSED TO BE CHANGED THIS MORNING (01/02/19) Omeprazole (Omeprazole) 40 Mg Capsule.dr, 40 MG PO BID Spironolactone (Spironolactone) 25 Mg Tablet, 25 MG PO DAILY Scheduled PRN Acetaminophen (8Hr Arthritis Pain Relief) 650 Mg Tablet.er, 650 MG PO TID PRN for PAIN Hydrocodone/Acetaminophen (Hydrocodone-Acetamin 5-325 mg) 1 Each Tablet, 1 TAB PO Q6H PRN for PAIN Loperamide HCl (Imodium A-D) 2 Mg Tablet, 2 MG PO PRN PRN for DIARRHEA Allergies Coded Allergies: No Known Allergies (Unverified , 11/07/18) A-FIB/CHADSVASC A-FIB History Current/History of A-Fib/PAF?: No Current PO Anticoag Therapy: No HOGN MCGARRY MD Jan 02, 2019 15:44
--- NOTE | 2019-01-02 15:47 | REP ---
REASON: Syncopal episode. COMPARISON: 11/07/2018. The technique utilized in obtaining the radiograph has magnified the cardiac silhouette and accentuated the interstitial markings. Cardiomediastinal silhouette is unchanged. The central venous catheter tip is in the superior vena cava. The lung peguero are essentially unchanged with evidence of minimal bibasilar fibrotic changes. No acute patchy parenchymal opacities or pleural effusions have developed. There is a hiatal hernia. The osseous structures are stable and intact. IMPRESSION: No evidence of acute cardiopulmonary disease. Electronically Signed by You Styles DO 01/02/2019 04:29 P
[2019-01-02] MEDS: NORCO, ANEXSIA 5/325MG TABLET (HYDROcodone/ACETAMINOPHEN) PO PRN (17:54)
[2019-01-02] MEDS: HumaLOG INSULIN (NovoLOG) PER UNIT SC SCH (18:30)
[2019-01-02 18:32] VITALS: BP 114/57
[2019-01-02] MEDS: HEPARIN SOD (PORCINE) 5000 UNITS/ML VIAL SC SCH (21:12)
[2019-01-02] MEDS: OMEPRAZOLE 20 MG CAP PO SCH (21:12)
[2019-01-02 22:00] VITALS: BP 125/58
[2019-01-03 06:00] VITALS: BP 121/56
[2019-01-03 06:04] LABS: HEMATOCRIT 35.3 % (36.0-47.0); HEMOGLOBIN 11.1 g/dl (12.0-15.5); MEAN CORPUSCULAR HEMOGLOBIN 27.4 pg (27.0-33.0); MEAN CORPUSCULAR HGB CONC 31.4 g/dl (32.0-36.5); MEAN CORPUSCULAR VOLUME 87.2 fl (80.0-96.0); PLATELET COUNT, AUTOMATED 279 10^3/uL (150-450); RED BLOOD COUNT 4.05 10^6/uL (4.00-5.40); WHITE BLOOD COUNT 9.8 10^3/uL (4.0-10.0)
[2019-01-03 06:32] LABS: BLOOD UREA NITROGEN 21 MG/DL (7-18); CALCIUM LEVEL 9.5 MG/DL (8.8-10.2); CARBON DIOXIDE LEVEL 23 MEQ/L (21-32); CHLORIDE LEVEL 109 MEQ/L (98-107); CREATININE FOR GFR 0.89 MG/DL (0.55-1.30); GLOMERULAR FILTRATION RATE > 60.0 (>45); GLUCOSE, FASTING 114 MG/DL (70-100); POTASSIUM SERUM 4.3 MEQ/L (3.5-5.1); SODIUM LEVEL 141 MEQ/L (136-145)
[2019-01-03] MEDS: HumaLOG INSULIN (NovoLOG) PER UNIT SC SCH ×3 (07:30→17:11)
[2019-01-03 07:40] VITALS: BP 121/59
[2019-01-03] MEDS: OMEPRAZOLE 20 MG CAP PO SCH ×2 (08:47→21:23)
[2019-01-03] MEDS: ESCITALOPRAM OXALATE 10 MG TAB (LEXAPRO) PO SCH (08:48)
[2019-01-03] MEDS: amLODIPine 10 MG TAB PO SCH (08:48)
[2019-01-03] MEDS: SPIRONOLACTONE 25 MG TAB PO SCH (08:48)
[2019-01-03] MEDS: ATORVASTATIN 20 MG TAB PO SCH (08:48)
[2019-01-03] MEDS: NICOTINE 14 MG/24 HR TRANSDERMAL TD SCH (08:49)
[2019-01-03] MEDS: ASPIRIN 81 MG ENTERIC TAB PO SCH (08:49)
[2019-01-03] MEDS: FERROUS SULFATE 325MG TAB PO SCH (08:49)
[2019-01-03] MEDS: HEPARIN SOD (PORCINE) 5000 UNITS/ML VIAL SC SCH ×2 (08:50→21:24)
[2019-01-03] MEDS ORDERED: CHLORTHALIDONE 12.5MG PER 1/2 TABLET PO SCH (09:00)
[2019-01-03] MEDS: NORCO, ANEXSIA 5/325MG TABLET (HYDROcodone/ACETAMINOPHEN) PO PRN (12:06)
[2019-01-03 14:00] VITALS: BP 120/65
[2019-01-03 15:50] VITALS: BP_SYST 110; BP_SYST 78; BP_SYST 94; BP_DIAS 60; BP_DIAS 62
--- NOTE | 2019-01-03 18:48 | IPNPDOC ---
Date Seen The patient was seen on 01/03/19. Progress Note SUBJECTIVE: Patient reportedly felt dizzy this morning after getting up. Orthostatic +. leukocytosis resolved WBC 17->9.8, afebrile overnight. OBJECTIVE PHYSICAL EXAMINATION: VITAL SIGNS: Please see below. PHYSICAL EXAMINATION: General: No acute distress, Alert Eyes: Normal sclera, EOMI, CHAUNCEY HENT: Atraumatic, neck supple, moist mucous membranes Cardiovascular: Normal rate, normal rhythm. No murmurs appreciated. Pulmonary: Clear to auscultation b/l, no wheezing GI: Soft, nontender, nondistended Skin: Warm and dry. Erythematous facial patches/scaly. Neuro: CN grossly intact. No focal deficits. Strengths equal b/l. Psych: oriented x 3 LABORATORY DATA, IMAGING STUDIES, MICROBIOLOGY: Please see below. ASSESSMENT AND PLAN: 1. Syncope and orthostatic hypotension - Likely orthostatic syncope given chronic in nature with positional changes, less likely to be seizure disorder. - No bowel/urinary incontinence, postictal confusion, nor tongue injuries. Re ported some tremors and unsteadiness but no significant jerking. - CT head showed no acute changes. Patient has no focal deficits. - Can discontinue neurochecks. - Just started on chemo infusion yesterday, unsure if this may have caused orthostatic to be worse. - PT. Recommend slow positional changes at home. - medications reviewed. Patient is on low dose diuretic, will keep for now. Will hold SSRI Lexapro at this time and start on midodrine. 2. Rectal cancer - Started on RT monday and chemo Monday. - Follows with Dr. Ramesh, consulted for continue RT while patient is inpatient. - Also Follows with Dr. Maya, needs continue following post discharge. 3. HTN - Monitor BP. - Resume home meds. 4. Bipolar disorder with depression - Resume home meds. 5. DM - Hold metformin. - ISS only at this time. Code status: Full code VS, I&O, 24H, Fishbone Vital Signs/I&O Vital Signs Date Time Temp Pulse Resp B/P (MAP) Pulse Ox O2 Delivery O2 Flow Rate FiO2 01/03/19 14:00 97.5 75 18 120/65 (83) 99 01/02/19 17:05 Room Air I&O- Last 24 Hours up to 6 AM 01/03/19 06:00 Intake Total 480 ml Output Total 250 ml Balance 230 ml Laboratory Data 24H LABS Laboratory Tests 2 01/02/19 20:42: Bedside Glucose (Misc Panel) 174H 01/03/19 05:52: Nucleated Red Blood Cells % (auto) 0.0, Anion Gap 9, Glomerular Filtration Rate > 60.0, Blood Urea Nitrogen 21H, Creatinine 0.89, Sodium Level 141, Potassium Level 4.3, Chloride Level 109H, Carbon Dioxide Level 23, Calcium Level 9.5 01/03/19 11:12: Bedside Glucose (Misc Panel) 118H 01/03/19 16:47: Bedside Glucose (Misc Panel) 138H CBC/BMP Laboratory Tests 01/03/19 05:52 Red Blood Count 4.05, Mean Corpuscular Volume 87.2, Mean Corpuscular Hemoglobin 27.4, Mean Corpuscular Hemoglobin Concent 31.4 L, Red Cell Distribution Width 23.8 H, Calcium Level 9.5 Microbiology Microbiology 01/02/19 Blood Culture - Preliminary, Resulted No growth after 24 hours . All specim... 01/02/19 Blood Culture - Preliminary, Resulted No growth after 24 hours . All specim... 01/02/19 Urine Culture - Final, Complete HONG MCGARRY MD Jan 03, 2019 18:48
[2019-01-03] MEDS ORDERED: MIDODRINE 5 MG TAB PO ONE (19:00)
[2019-01-03 20:00] VITALS: BP 121/58
--- NOTE | 2019-01-03 21:25 | ECGEPIP ---
[facility] - ED Test Date: 2019-01-02 Pat Name: TRAVON LIVINGSTON Department: Room: - Gender: Female Cooking Teacher: JT : 1955 Requested By: DANI Ozuna Order Number: [id number] Reading MD: Latisha Stroud Measurements Intervals [place] Rate: 66 P: 28 NV: 142 QRS: 12 QRSD: 88 T: 41 QT: 429 QTc: 451 Interpretive Statements SINUS RHYTHM INCREASED RATE 11/14/18 Electronically Signed on 01-03-2019 21:25:42 EDT by Latisha Stroud
[2019-01-04 06:00] VITALS: BP 99/57
[2019-01-04] MEDS: HumaLOG INSULIN (NovoLOG) PER UNIT SC SCH ×3 (07:18→17:09)
[2019-01-04] MEDS: OMEPRAZOLE 20 MG CAP PO SCH ×2 (08:06→22:12)
[2019-01-04] MEDS: ASPIRIN 81 MG ENTERIC TAB PO SCH (08:06)
[2019-01-04] MEDS: MIDODRINE 5 MG TAB PO SCH ×3 (08:06→16:57)
[2019-01-04] MEDS: ATORVASTATIN 20 MG TAB PO SCH (08:06)
[2019-01-04] MEDS: FERROUS SULFATE 325MG TAB PO SCH (08:06)
[2019-01-04] MEDS: ESCITALOPRAM OXALATE 10 MG TAB (LEXAPRO) PO SCH (08:07)
[2019-01-04] MEDS: NICOTINE 14 MG/24 HR TRANSDERMAL TD SCH (08:07)
[2019-01-04] MEDS: HEPARIN SOD (PORCINE) 5000 UNITS/ML VIAL SC SCH ×2 (08:09→22:11)
[2019-01-04] MEDS: SPIRONOLACTONE 25 MG TAB PO SCH (08:16)
[2019-01-04] MEDS: amLODIPine 10 MG TAB PO SCH (08:16)
[2019-01-04] MEDS ORDERED: PREVNAR 13 VACCINE SYRINGE (CPT CODE:90670) IM ONE (09:00)
[2019-01-04] MEDS ORDERED: FLUBLOK(EGG FREE)(QUAD)INFLUENZA VACC 0.5ML SYRINGE (90682)18YRS&OLDER IM ONE (09:00)
[2019-01-04 09:06] LABS: HEMATOCRIT 36.6 % (36.0-47.0); HEMOGLOBIN 11.5 g/dl (12.0-15.5); MEAN CORPUSCULAR HEMOGLOBIN 26.9 pg (27.0-33.0); MEAN CORPUSCULAR HGB CONC 31.4 g/dl (32.0-36.5); MEAN CORPUSCULAR VOLUME 85.5 fl (80.0-96.0); PLATELET COUNT, AUTOMATED 145 10^3/uL (150-450); RED BLOOD COUNT 4.28 10^6/uL (4.00-5.40); WHITE BLOOD COUNT 5.8 10^3/uL (4.0-10.0)
[2019-01-04 09:07] LABS: BLOOD UREA NITROGEN 28 MG/DL (7-18); CARBON DIOXIDE LEVEL 20 MEQ/L (21-32); CHLORIDE LEVEL 108 MEQ/L (98-107); CREATININE FOR GFR 0.84 MG/DL (0.55-1.30); GLOMERULAR FILTRATION RATE > 60.0 (>45); GLUCOSE, FASTING 111 MG/DL (70-100); SODIUM LEVEL 139 MEQ/L (136-145)
[2019-01-04 14:00] VITALS: BP 114/51
--- NOTE | 2019-01-04 17:02 | IPNPDOC ---
Date Seen The patient was seen on 01/04/19. Progress Note SUBJECTIVE: Patient stated that she feels a bit sick in her stomach. Denies other complaints, was severely orthostatic yesterday. Afebrile overnight. WBC 5.8. OBJECTIVE PHYSICAL EXAMINATION: VITAL SIGNS: Please see below. PHYSICAL EXAMINATION: General: No acute distress, Alert Eyes: Normal sclera, EOMI, CHAUNCEY HENT: Atraumatic, neck supple Cardiovascular: Normal rate, normal rhythm. Pulmonary: Clear to auscultation b/l, no wheezing GI: Soft, nontender Skin: Warm and dry. Erythematous facial patches/scaly. Neuro: CN grossly intact. No focal deficits. Strengths equal b/l. Psych: oriented x 3 LABORATORY DATA, IMAGING STUDIES, MICROBIOLOGY: Please see below. ASSESSMENT AND PLAN: 1. Syncope and orthostatic hypotension - Likely orthostatic syncope given chronic in nature with positional changes, less likely to be seizure disorder. - No bowel/urinary incontinence, postictal confusion, nor tongue injuries. Reported some tremors and unsteadiness but no significant jerking. - CT head showed no acute changes. Patient has no focal deficits. - Can discontinue neurochecks. - PT. Recommend slow positional changes at home. - medications reviewed. SSRI and chlorthalidone held at this time. Started on midodrine. - c/w PT and assess for stability prior to discharge. 2. Rectal cancer - Started on RT monday and chemo Monday. - Follows with Dr. Ramesh, consulted for continue RT while patient is inpatient. - Also Follows with Dr. Maya, needs continue following post discharge. - Home infusion ongoing, will have someone come to hospital tomorrow to d/c infusion. 3. HTN - Monitor BP. - Resume home meds. 4. Bipolar disorder with depression - Resume home meds. 5. DM - Hold metformin. - ISS only at this time. Code status: Full code VS, I&O, 24H, Fishbone Vital Signs/I&O Vital Signs Date Time Temp Pulse Resp B/P (MAP) Pulse Ox O2 Delivery O2 Flow Rate FiO2 01/04/19 14:00 99.1 55 15 114/51 (72) 95 01/02/19 17:05 Room Air I&O- Last 24 Hours up to 6 AM 01/04/19 05:59 Intake Total 1526 ml Output Total 1250 ml Balance 276 ml Laboratory Data 24H LABS Laboratory Tests 2 01/03/19 20:36: Bedside Glucose (Misc Panel) 136H 01/04/19 06:20: Bedside Glucose (Misc Panel) 103 01/04/19 08:38: Nucleated Red Blood Cells % (auto) 0.0, Anion Gap 11, Glomerular Filtration Rate > 60.0, Blood Urea Nitrogen 28H, Creatinine 0.84, Sodium Level 139, Potassium Level 4.0, Chloride Level 108H, Carbon Dioxide Level 20L, Calcium Level 9.0 01/04/19 11:22: Bedside Glucose (Misc Panel) 121H CBC/BMP Laboratory Tests 01/04/19 08:38 Red Blood Count 4.28, Mean Corpuscular Volume 85.5, Mean Corpuscular Hemoglobin 26.9 L, Mean Corpuscular Hemoglobin Concent 31.4 L, Red Cell Distribution Width 23.8 H, Calcium Level 9.0 Microbiology Microbiology 01/02/19 Blood Culture - Preliminary, Resulted No Growth after 48 hours. All Specime... 01/02/19 Blood Culture - Preliminary, Resulted No Growth after 48 hours. All Specime... 01/02/19 Urine Culture - Final, Complete HONG MCGARRY MD Jan 04, 2019 17:02
[2019-01-04 22:00] VITALS: BP 116/61
[2019-01-05 06:00] VITALS: BP_SYST 118; BP_SYST 122; BP_SYST 145; BP_SYST 148; BP_DIAS 63; BP_DIAS 68; BP_DIAS 71; BP_DIAS 75
[2019-01-05] MEDS: HumaLOG INSULIN (NovoLOG) PER UNIT SC SCH ×3 (08:56→16:53)
[2019-01-05] MEDS: HEPARIN SOD (PORCINE) 5000 UNITS/ML VIAL SC SCH ×2 (08:57→21:00)
[2019-01-05] MEDS: amLODIPine 10 MG TAB PO SCH (08:57)
[2019-01-05] MEDS: ESCITALOPRAM OXALATE 10 MG TAB (LEXAPRO) PO SCH (08:57)
[2019-01-05] MEDS: FERROUS SULFATE 325MG TAB PO SCH (08:58)
[2019-01-05] MEDS: ASPIRIN 81 MG ENTERIC TAB PO SCH (08:58)
[2019-01-05] MEDS: ATORVASTATIN 20 MG TAB PO SCH (08:58)
[2019-01-05] MEDS: MIDODRINE 5 MG TAB PO SCH ×3 (08:59→16:57)
[2019-01-05] MEDS: SPIRONOLACTONE 25 MG TAB PO SCH (08:59)
[2019-01-05] MEDS: NS 1,000 ML IV SCH ×2 (08:59→19:31)
[2019-01-05] MEDS: OMEPRAZOLE 20 MG CAP PO SCH ×2 (08:59→21:00)
[2019-01-05] MEDS: NICOTINE 14 MG/24 HR TRANSDERMAL TD SCH (08:59)
[2019-01-05] MEDS: NORCO, ANEXSIA 5/325MG TABLET (HYDROcodone/ACETAMINOPHEN) PO PRN ×2 (10:16→11:52)
--- NOTE | 2019-01-05 17:24 | IPNPDOC ---
Date Seen The patient was seen on 01/05/19. Progress Note SUBJECTIVE: Patient reported feeling better and less sick. States that she walk around better but reportedly still dizzy. Orthostatic had improved significantly however. OBJECTIVE PHYSICAL EXAMINATION: VITAL SIGNS: Please see below. PHYSICAL EXAMINATION: General: No acute distress, Alert Eyes: Normal sclera, EOMI, CHAUNCEY HENT: Atraumatic, neck supple Cardiovascular: Normal rate, normal rhythm. Pulmonary: Clear to auscultation b/l, no wheezing GI: Soft, nontender Skin: Warm and dry. Erythematous facial patches/scaly. Neuro: CN grossly intact. No focal deficits. Strengths equal b/l. Psych: oriented x 3 LABORATORY DATA, IMAGING STUDIES, MICROBIOLOGY: Please see below. ASSESSMENT AND PLAN: 1. Syncope and orthostatic hypotension - Likely orthostatic syncope given chronic in nature with positional changes, less likely to be seizure disorder. - No bowel/urinary incontinence, postictal confusion, nor tongue injuries. Reported some tremors and unsteadiness but no significant jerking. - CT head showed no acute changes. Patient has no focal deficits. - Can discontinue neurochecks. - PT. Recommend slow positional changes at home. - medications reviewed. SSRI and chlorthalidone held at this time. Started on midodrine and IVF. - c/w PT and assess for stability prior to discharge. 2. Rectal cancer - Started on RT monday and chemo Monday. - Follows with Dr. Ramesh, consulted for continue RT while patient is inpatient. - Also Follows with Dr. Maya, needs continue following post discharge. - On home infusion. arranged to d/c on 01/05 as scheduled. 3. HTN - Monitor BP. - Resume home meds. Chlorthalidone held at this time due to orthostatic hypotension. 4. Bipolar disorder with depression - Resume home meds. 5. DM - Hold metformin. - ISS only at this time. Code status: Full code VS, I&O, 24H, Fishbone Vital Signs/I&O Vital Signs Date Time Temp Pulse Resp B/P (MAP) Pulse Ox O2 Delivery O2 Flow Rate FiO2 01/05/19 14:00 97.5 60 18 96 01/05/19 06:00 122/68 (86) 145/71 (95) 148/75 (99) 01/02/19 17:05 Room Air I&O- Last 24 Hours up to 6 AM 01/05/19 06:00 Intake Total 450 ml Balance 450 ml Laboratory Data 24H LABS Laboratory Tests 2 01/04/19 20:48: Bedside Glucose (Misc Panel) 155H 01/05/19 05:30: Bedside Glucose (Misc Panel) 136H 01/05/19 11:43: Bedside Glucose (Misc Panel) 102 01/05/19 16:49: Bedside Glucose (Misc Panel) 103 Microbiology Microbiology 01/02/19 Blood Culture - Preliminary, Resulted No Growth after 72 hours. All specime... 01/02/19 Blood Culture - Preliminary, Resulted No Growth after 72 hours. All specime... 01/02/19 Urine Culture - Final, Complete HONG MCGARRY MD Jan 05, 2019 17:24
[2019-01-05 22:00] VITALS: BP 115/79
[2019-01-06] MEDS: NS 1,000 ML IV SCH ×2 (05:32→14:20)
[2019-01-06 06:00] VITALS: BP_SYST 127; BP_SYST 129; BP_SYST 141; BP_DIAS 71; BP_DIAS 76; BP_DIAS 96
[2019-01-06] MEDS: SPIRONOLACTONE 25 MG TAB PO SCH (08:40)
[2019-01-06] MEDS: HEPARIN SOD (PORCINE) 5000 UNITS/ML VIAL SC SCH (08:40)
[2019-01-06] MEDS: NICOTINE 14 MG/24 HR TRANSDERMAL TD SCH (08:40)
[2019-01-06] MEDS: FERROUS SULFATE 325MG TAB PO SCH (08:41)
[2019-01-06] MEDS: HumaLOG INSULIN (NovoLOG) PER UNIT SC SCH ×2 (08:41→12:42)
[2019-01-06] MEDS: ESCITALOPRAM OXALATE 10 MG TAB (LEXAPRO) PO SCH (08:41)
[2019-01-06] MEDS: ATORVASTATIN 20 MG TAB PO SCH (08:41)
[2019-01-06 08:42] VITALS: BP 113/62
[2019-01-06] MEDS: OMEPRAZOLE 20 MG CAP PO SCH (08:42)
[2019-01-06] MEDS: ASPIRIN 81 MG ENTERIC TAB PO SCH (08:42)
[2019-01-06] MEDS: MIDODRINE 5 MG TAB PO SCH ×3 (08:42→14:52)
[2019-01-06] MEDS: amLODIPine 10 MG TAB PO SCH (08:42)
[2019-01-06] MEDS ORDERED: MIDO5TA PO (11:39)
--- NOTE | 2019-01-06 11:48 | DS.PDOC ---
Discharge Summary General Date of Admission Jan 02, 2019 at 18:36 Date of Discharge 01/06/19 Discharge Summary PROCEDURES PERFORMED DURING STAY: [None]. ADMITTING DIAGNOSES: 1. Syncope 2. Orthostatic hypotension 3. Rectal cancer on home infusion 4. HTN 5. Bipolar disorder 6. DM DISCHARGE DIAGNOSES: 1. Syncope 2. Orthostatic hypotension 3. Rectal cancer on home infusion 4. HTN 5. Bipolar disorder 6. DM COMPLICATIONS/CHIEF COMPLAINT: Orthostatic Syncope. HISTORY OF PRESENT ILLNESS: "Patient is a 63F with PMH recently diagnosed Rectal cancer diagnosed in October this year now on Chemo and RT, HTN, CVA/TIA, HLD, Bipolar disorder, DM brought into the ER from her long-term for concerns of syncope and seizures. She stated that she was walking to the bathroom when she felt a little dizzy and was lower ed into a chair, does not think that she had actually passed out. Members at long-term stated that he eyes rolled back and was stiff, not answering questions for about 30 seconds. Reported no bowel or urinary incontinence or significant confusion after the event. Stated that she does get dizzy from time to time when getting up and walking around but has not been this severe. She states that she just started Radiation therapy for her rectal cancer on Monday and in-home chemo infusion yesterday but otherwise no other acute changes. She current feels well now, reports some frontal headaches that is chronic in nature but no other particular complaints including dizziness, chest pain, visual changes, weakness/numbness. " HOSPITAL COURSE: Patient noted to have severe orthostatic hypotension along with URI, reported feeling sick to her stomach. She was given IVF support along with initiation of midodrine with significant improvement in symptoms, chlorthalidone and SSRI are held at this time. Chemo infusion were stopped yesterday. Highly suspicious that patient felt sick from chemo, which is not unexpected. Now that patient feels well and have no complaints, will discharge to f/u PMD and Oncology. Will give 7 day course of Midodrine and hold Chlorthalidone and SSRI temporarily. Can likely be restart as outpatient or switch to a different medication if needed by PMD once symptoms are more under control. DISCHARGE MEDICATIONS: Please see below. ALLERGIES: Please see below. PHYSICAL EXAMINATION ON DISCHARGE: VITAL SIGNS: Please see below. General: No acute distress, Alert Eyes: Normal sclera, EOMI, CHAUNCEY HENT: Atraumatic, neck supple Cardiovascular: Normal rate, normal rhythm. Pulmonary: Clear to auscultation b/l, no wheezing GI: Soft, nontender Skin: Warm and dry. Erythematous facial patches/scaly. Neuro: CN grossly intact. No focal deficits. Strengths equal b/l. Psych: oriented x 3 LABORATORY DATA: Please see below. IMAGING: Head CT- IMPRESSION: No acute disease or significant change compared to the prior exam. ACTIVITY: [As tolerated]. DISCHARGE PLAN: f/u PMD and Oncology Hold Chlorthalidone and SSRI for now Continue short course of Midodrine DISPOSITION: Back to long-term. DISCHARGE INSTRUCTIONS: f/u PMD and Oncology Hold Chlorthalidone and SSRI for now Continue short course of Midodrine ITEMS TO FOLLOWUP ON ON OUTPATIENT: None DISCHARGE CONDITION: [Stable]. TIME SPENT ON DISCHARGE: 32 minutes. Vital Signs/I&Os Vital Signs Date Time Temp Pulse Resp B/P (MAP) Pulse Ox O2 Delivery O2 Flow Rate FiO2 01/06/19 08:42 76 113/62 01/06/19 06:00 97.3 18 97 01/02/19 17:05 Room Air I&O- Last 24 Hours up to 6 AM 01/06/19 06:00 Intake Total 3220 ml Balance 3220 ml Laboratory Data Labs 24H Laboratory Tests 2 01/05/19 11:43: Bedside Glucose (Misc Panel) 102 01/05/19 16:49: Bedside Glucose (Misc Panel) 103 01/05/19 20:38: Bedside Glucose (Misc Panel) 133H 01/06/19 07:43: Bedside Glucose (Misc Panel) 127H FSBS Laboratory Tests Test 01/05/19 11:43 01/05/19 16:49 01/05/19 20:38 01/06/19 07:43 Range/Units Bedside Glucose (Misc Panel) 102 103 133 127 80-115 MG/DL Microbiology Microbiology 01/02/19 Blood Culture - Preliminary, Resulted No Growth after 72 hours. All specime... 01/02/19 Blood Culture - Preliminary, Resulted No Growth after 72 hours. All specime... 01/02/19 Urine Culture - Final, Complete Discharge Medications Scheduled Amlodipine Besylate (Amlodipine Besylate) 10 Mg Tablet, 10 MG PO DAILY, (Reported) Aspirin (Aspirin EC) 81 Mg Tablet.dr, 81 MG PO DAILY, (Reported) Atorvastatin Calcium (Atorvastatin Calcium) 20 Mg Tablet, 20 MG PO DAILY, (Reported) Chlorthalidone (Chlorthalidone) 25 Mg Tablet, 12.5 MG PO DAILY, (Reported) Escitalopram Oxalate (Escitalopram Oxalate) 10 Mg Tablet, 10 MG PO DAILY, (Reported) Ferrous Sulfate (Ferrous Sulfate) 325 Mg Tablet, 325 MG PO DAILY, (Reported) Fluorouracil (Fluorouracil) 500 Mg/10 Ml Vial, 6,720 MG IV ASDIRECTED, (Reported) CURRENTLY HAS THIS RUNNING THROUGH CENTRAL LINE UNTIL MONDAY (01/05/19) Metformin HCl (Metformin HCl ER) 500 Mg Tab.er.24h, 500 MG PO BID, (Reported) Midodrine HCl (Midodrine HCl) 5 Mg Tablet, 5 MG PO 08,12,16 Mitomycin (Mitomycin) 20 Mg Vial, 16 MG IV ASDIRECTED, (Reported) Nicotine (Nicotine Patch) 14 Mg Patch.td24, 14 MG TD DAILY, (Reported) CURRENTLY HAS PATCH APPLIED TO LEFT SHOULDER THAT WAS SUPPOSED TO BE CHANGED THIS MORNING (01/02/19) Omeprazole (Omeprazole) 40 Mg Capsule.dr, 40 MG PO BID, (Reported) Spironolactone (Spironolactone) 25 Mg Tablet, 25 MG PO DAILY, (Reported) Scheduled PRN Acetaminophen (8Hr Arthritis Pain Relief) 650 Mg Tablet.er, 650 MG PO TID PRN for PAIN, (Reported) Hydrocodone/Acetaminophen (Hydrocodone-Acetamin 5-325 mg) 1 Each Tablet, 1 TAB PO Q6H PRN for PAIN, (Reported) Loperamide HCl (Imodium A-D) 2 Mg Tablet, 2 MG PO PRN PRN for DIARRHEA, (Reported) Allergies Coded Allergies: No Known Allergies (Unverified , 11/07/18) HONG MCGARRY MD Jan 06, 2019 11:48
== END 2019-01-06 14:56 | disposition home or self-care (01) | DRG 312 ==
LOC: EDBD 10:25 → M ED 10:25 → M ED INP 10:26 → M MSPAV 18:17 → EEVIPCON 18:36 → OBSVTOIN 18:36
PROVIDERS: ADMIT Student in an Organized Health Care Education/Training Program; ATTEND Student in an Organized Health Care Education/Training Program
DX: I95.1 Orthostatic hypotension (principal); C20 Malignant neoplasm of rectum; I10 Essential (primary) hypertension; F31.9 Bipolar disorder, unspecified; E11.9 Type 2 diabetes mellitus without complications; Z86.73 Personal history of transient ischemic attack (TIA), and cerebral infarction without residual deficits; Z79.899 Other long term (current) drug therapy; Z79.82 Long term (current) use of aspirin; Z87.891 Personal history of nicotine dependence

== ENCOUNTER → 2019-01-14 | Outpatient (RCR) | payer MEDICARE, MEDICAID ==
--- NOTE | 2019-01-02 14:05 | RADONC ---
RADIATION ONCOLOGY PROGRESS NOTE DATE: 12/31/2018 CHART NUMBER: 12/31/2018 Ms. Monique was taken to the linear accelerator today and underwent her first fraction of 180 cGy to her anus. It was tolerated without difficulty or discomfort. The patient's review of systems was unchanged as was her physical exam. The patient has not yet started her chemotherapy. I had lengthy discussions about this case with multiple physicians. The patient was for some reason referred to the colorectal service and was seen by Dr. Gregg Stevens, who recommended that we treat this patient with chemotherapy and radiation using the anal protocol. 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 This patient was presented at multidisciplinary tumor conference as well and it was recommended that we treat this patient as an anal carcinoma using chemotherapy and radiation. I had ordered a PET scan, which did show a liver lesion and then arranged with Dr. Vila for biopsy of that lesion, which turned out to be metastatic. I have been off on vacation for the past 2 weeks and my covering physician Dr. Nilesh Jackson had multiple discussions with me about this case. Apparently, as of now, there is still no chemotherapy port placed. Apparently, it was not ordered. Dr. Jackson and I have been concerned about the delay in starting this patient and therefore Dr. Jackson has ordered the patient with my full support and backing to start radiation today with or without placement of a port for chemotherapy. Our overall plan would be radiation and chemotherapy for palliative control of her anal cancer followed by local treatment for her solitary liver metastasis, either resection, radiosurgery or some other modality. I have spoken with our new director, as well as our nurse campus manager about this case on multiple occasions. Apparently, she is scheduled for placement of a port tomorrow and chemotherapy should be able to begin by Monday. In light of that, she will have had only five fractions of radiation without chemotherapy. In light of the fact that this is palliative course for local control, Dr. Jackson and I both agree that this is a reasonable course of action at this point. There was some concern with regards to the patient's teeth. Initially we were told it would be at least 2 months or more before that issue could be fully addressed and the oral cavity could be healed if there needed to be full extractions. Dr. Jackson and I were both very concerned with waiting for months before initiating definitive therapy to the anal lesion.
--- NOTE | 2019-01-09 06:30 | RADONC ---
RADIATION ONCOLOGY PROGRESS NOTE DATE: 01/07/2019 CHART NUMBER: [id number] Ms. Monique is presently at a dose of 900 cGy to her anus and is tolerating her treatments quite well at this point with no complaints at this time related to her radiation therapy. The patient eight ports and discussed her hospitalization last week for hypertensive episodes. She is feeling better now and is having no difficulties. None of these issues seem related to her external beam radiation therapy. REVIEW OF SYSTEMS: The patient's review of systems is noncontributory. She denies nausea, vomiting, fevers, chills, night sweats, diplopia, headaches, anxiety or depression, anorexia, weight loss, visual disturbances, chest pain, urinary or bowel difficulties, bone pain, or neurological problems. PHYSICAL EXAMINATION: The patient's skin is in good condition with no evidence of moist or dry desquamation. The remainder of her physical exam remains unchanged. Ms. Monique is tolerating treatments quite well and radiation will continue as scheduled. I had a lengthy discussion with the patient with regards to the liver lesion. Once we obtain control of her pelvic issues the liver needs to be addressed. I would expect discussion with regards to local treatment such as radiosurgery, mastectomy with surgery or some other modalities. I will of course defer to her medical oncologist with regards to systemic therapy as well. In the meantime, radiation will continue as scheduled.
[~2019-01-14] MED LIST changes: +AMOX500C PO; +ASPI81TA26 PO; -FLUOROURACIL IV SCH; +HYDR-3713 PO; +MIDO5TA PO; +NICO14DI6 TD; +OMEP40CA2 PO; +[UNRECOGNIZED DRUG - CODE] IV; +[UNRECOGNIZED DRUG - CODE] IV; +chemotherapy IV
--- NOTE | 2019-01-15 08:23 | RADONC ---
RADIATION ONCOLOGY PROGRESS NOTE DATE: 01/14/2019 CHART NUMBER: [id number] Ms. Monique is presently at a dose of 1800 cGy to her anus and is tolerating treatments quite well at this point with no complaints related to her radiation therapy. She is reporting no significant perianal pain or discomfort. The patient's review of systems is noncontributory. She denies nausea, vomiting, fevers, chills, night sweats, diplopia, headaches, anxiety or depression, anorexia, weight loss, visual disturbances, chest pain, urinary or bowel difficulties, bone pain, or neurological problems. PHYSICAL EXAMINATION: The patient's skin is in good condition with no evidence of moist or dry desquamation. The remainder of physical exam remains unchanged. ASSESSMENT: The patient is tolerating treatments quite well and radiation will continue as scheduled. Following completion of treatment, we will address the liver lesion and I have discussed this further with her at this time.
== END ==
LOC: M ONCR 12-27 13:42
PROVIDERS: ATTEND Radiology Radiation Oncology
DX: C21.0 Malignant neoplasm of anus, unspecified (principal)

== ENCOUNTER 2019-02-07 13:20 | Outpatient (RCR) | payer MEDICARE, MEDICAID ==
--- NOTE | 2019-01-22 11:21 | RADONC ---
RADIATION ONCOLOGY PROGRESS NOTE DATE: 01/21/2019 CHART NUMBER: [id number] PROGRESS NOTE Ms. Monique is the presently at a dose of 2700 cGy to her anus and is tolerating treatments quite well at this point with no significant difficulties related to her radiation therapy other than some itchiness. REVIEW OF SYSTEMS: The patient's review of systems is positive for some itchiness but is otherwise noncontributory. Denies nausea, vomiting, fevers, chills, night sweats, diplopia, headaches, anxiety or depression, anorexia, weight loss, visual disturbances, chest pain, urinary or bowel difficulties, bone pain, or neurological problems. PHYSICAL EXAMINATION: The patient's skin is in good condition with no evidence of radiation change present. There is no moist or dry desquamation. The remainder of her physical exam remains unchanged. Ms. Monique is tolerating treatments quite well and radiation will continue as scheduled.
--- NOTE | 2019-01-28 14:30 | RADONC ---
RADIATION ONCOLOGY PROGRESS NOTE DATE: 01/28/2019 CHART NUMBER: [id number] Ms. Monique is presently at a dose of 3600 cGy to her anus and is tolerating treatments quite well at this point with no significant difficulties related to her radiation therapy other than some perianal discomfort. The patient's review of systems is positive for perianal discomfort. Denies nausea, vomiting, fevers, chills, night sweats, diplopia, headaches, anxiety or depression, anorexia, weight loss, visual disturbances, chest pain, urinary or bowel difficulties, bone pain, or neurological problems. PHYSICAL EXAMINATION: The patient's skin shows erythema and tanning present but overall is in generally good condition. The remainder of her physical examination remains unchanged. Ms. Monique is tolerating treatments quite well and radiation will continue as scheduled.
--- NOTE | 2019-02-05 08:49 | RADONC ---
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 She appears to be tolerating her radiation reasonably well. REVIEW OF SYSTEMS: She denies any nausea, vomiting, diarrhea, dysuria, hematuria or blood per rectum. She does complain of pain in the anal area and in the anterior groin areas bilaterally with redness of the skin. Her energy level is diminished, but she is still able to maintain most day-to-day activities without any alteration of her lifestyle. She does express that she notes some skin irritation. The remainder of the review of systems is unchanged. EXAMINATION: She has a brisk erythematous reaction in the groin and perineal area. There is no gross evidence of desquamation currently. There is no palpable peripheral lymphadenopathy. Lungs are clear. Heart: Regular. The remainder of the physical examination is unchanged. IMPRESSION: Tolerating therapy well. PLAN: Treatments to continue. MTDD
[~2019-02-07 13:20] MED LIST changes: -OMEP40CA2 PO; +OMEP40CA97 PO
--- NOTE | 2019-02-08 19:06 | RADONC ---
RADIATION THERAPY END OF TREATMENT SUMMARY DATE: 02/08/2019 CHART NUMBER: [id number] DIAGNOSIS: Anal carcinoma. ECOG PERFORMANCE STATUS: 1 PLAN OF RADIOTHERAPY: Local regional radiotherapy for local regional control and palliation. DATE RADIOTHERAPY STARTED: January 08, 2019 DATE RADIOTHERAPY COMPLETED: February 07, 2019 DOSE: The patient received a total of 5040 cGy administered in 28 fractions over 30 elapsed days. Prior to treatment delivery, localization was accomplished upon our CT simulator and treatment portals determined by the use of multileaf collimators. A 6 MV photon beam was employed for treatment delivery utilizing IMRT with the dose assessed at the 100% isodose line. STATUS OF TUMOR: The patient had a moderate degree of palliation of her discomfort during her course of radiotherapy. TOLERANCE: In general, treatments were fairly well tolerated, although the patient at the end of radiotherapy was complaining of a fairly significant amount of skin discomfort in the perineal region. It was also noted that there were focal areas of desquamation, which were treated conservatively and appeared to respond with improvement of discomfort. DISPOSITION: Return to clinic in 1 month for post radiotherapy followup visit and skin check, and she was advised to return to her referring physicians as per their directions and instructions. Thank you for allowing us the opportunity of participation in the management of this very dara lady. cc: DO Adriana Ivan MD David Ouyang, MD Gerald Weinstein, MD
[2019-02-14] MEDS ORDERED: SERT25TA21 (09:07)
== END 2019-02-14 ==
LOC: M ONCR 13:20
PROVIDERS: ATTEND Radiology Radiation Oncology
DX: C21.0 Malignant neoplasm of anus, unspecified (principal)

== ENCOUNTER 2019-02-14 08:59 | Emergency (ER) | payer MEDICARE, MEDICAID ==
[~2019-02-14] VITALS: Ht 154.9 cm; Wt 62.3 kg
[2019-02-14] MEDS ORDERED: SERT25TA21 (09:07)
[2019-02-14 10:00] LABS: BASO % 0.3 % (0.0-1.0); EOS % 0.6 % (0.0-3.0); HEMATOCRIT 28.2 % (36.0-47.0); MEAN CORPUSCULAR HEMOGLOBIN 31.5 pg (27.0-33.0); MEAN CORPUSCULAR HGB CONC 31.9 g/dl (32.0-36.5); MEAN CORPUSCULAR VOLUME 98.6 fl (80.0-96.0); MONO # 0.5 10^3/uL (0.0-0.8); NEUTROPHILS # 2.5 10^3/uL (1.5-8.5); NEUTROPHILS % 75.9 % (36.0-66.0); RED BLOOD COUNT 2.86 10^6/uL (4.00-5.40); WHITE BLOOD COUNT 3.3 10^3/uL (4.0-10.0)
[2019-02-14] MEDS ORDERED: NS 1,000 ML IV SCH (10:00)
[2019-02-14 10:21] LABS: ALBUMIN 3.1 GM/DL (3.2-5.2); ALT/SGPT 17 U/L (12-78); BILIRUBIN,TOTAL 0.4 MG/DL (0.2-1.0); BLOOD UREA NITROGEN 18 MG/DL (7-18); CALCIUM LEVEL 8.4 MG/DL (8.8-10.2); CARBON DIOXIDE LEVEL 22 MEQ/L (21-32); CHLORIDE LEVEL 112 MEQ/L (98-107); CREATININE FOR GFR 0.76 MG/DL (0.55-1.30); GLOMERULAR FILTRATION RATE > 60.0 (>45); GLUCOSE, FASTING 99 MG/DL (70-100); POTASSIUM SERUM 3.4 MEQ/L (3.5-5.1); SODIUM LEVEL 142 MEQ/L (136-145); TOTAL PROTEIN 6.9 GM/DL (6.4-8.2)
[2019-02-14 10:33] LABS: LYMPH # 0.2 10^3/uL (1.5-5.0)
[2019-02-14 10:34] LABS: PLATELET COUNT, AUTOMATED 76 10^3/uL (150-450)
[2019-02-14] MEDS ORDERED: ISOVUE-370 76% 100ML VIAL (Q9967) As Ordered ONE ×2 (11:18→12:17)
--- NOTE | 2019-02-14 12:47 | REP ---
Clinical: Pelvic pain with history of anal carcinoma. Technique: Axial contrast enhanced images from the lung bases to the pubic symphysis oozing 100 ml Isovue 370 intravenous contrast material with coronal and sagittal re-formations. Comparison: 11/07/2018 Findings: Liver demonstrates fatty infiltration with that stable hypodensity in the periphery of the right lobe which may represent small cyst. Spleen, pancreas, gallbladder, bilateral adrenal glands and kidneys are essentially normal/stable. Stable hiatal hernia at the gastroesophageal junction noted. There is no evidence for bowel obstruction. Scattered sigmoid diverticula noted without acute diverticulitis. Mucosal thickening of the rectosigmoid colon with surrounding pericolonic stranding appears relatively similar to prior examination and may represent postradiation type changes. Further evaluation of the pelvis demonstrates normal bladder and evidence for prior hysterectomy. No ascites. No adenopathy. No obvious mass lesion. Atherosclerotic changes to the aorta without aneurysm or dissection. Musculoskeletal structures demonstrate age-related changes without focal abnormality. Lung bases demonstrate mild chronic-appearing changes. Impression: 1. Hepatic steatosis and small stable hepatic hypodensity which is nonspecific, but may represent cyst. Consider non emergent follow-up ultrasound. 2. Submucosal thickening and stranding involving the rectosigmoid similar to prior examination which may represent postradiation type changes. 3. Moderate hiatal hernia. 4. No further acute process appreciated. No ascites. No adenopathy. Electronically Signed by Dima Espinoza MD 02/14/2019 12:38 P
[2019-02-14 13:58] VITALS: BP 136/74
--- NOTE | 2019-02-20 10:44 | ED PDOC ---
Post-Departure Follow-Up radiology report faxed to Latisha Lora MD Feb 20, 2019 10:44
== END 2019-02-14 13:59 | disposition home or self-care (01) ==
LOC: M ED 08:59
DX: N76.81 Mucositis (ulcerative) of vagina and vulva (principal); T66.XXXA Radiation sickness, unspecified, initial encounter; C20 Malignant neoplasm of rectum; Z92.21 Personal history of antineoplastic chemotherapy; Z92.3 Personal history of irradiation; I10 Essential (primary) hypertension; E11.9 Type 2 diabetes mellitus without complications; E78.49 Other hyperlipidemia; D64.9 Anemia, unspecified; F17.218 Nicotine dependence, cigarettes, with other nicotine-induced disorders; R30.0 Dysuria
CPT/HCPCS: 36415; 74177; 80053; 81001; 83605; 85025; 85049; 85055; 87040; 96361; 96374; 99284; Q9967

== ENCOUNTER → 2019-03-05 | Outpatient (CLI) | payer MEDICARE, MEDICAID ==
[~2019-03-05] MED LIST changes: +SERT25TA21
--- NOTE | 2019-03-05 15:06 | REP ---
PET/CT: History: Restaging anal carcinoma. Comparisons: Comparison PET-CT study December 11, 2018. Comparison CT abdomen and pelvis February 14, 2019. TECHNIQUE: 47 minutes following the intravenous injection of a 7.92 mCi dose of F-18 FDG, three-dimensional PET scintigraphy is acquired from the skull base to the proximal thighs. Triplanar noncontrast CT scanning is acquired through the same anatomic range for attenuation correction, and image registration with scan parameters optimized to minimize radiation exposure to the patient. PET scintigraphy and CT datasets were fused and displayed on a workstation with multiplanar and projection display capability. PET/CT Findings: Liver is improved. There is no abnormal hypermetabolic uptake focus today in the liver. Previous study showed a hypermetabolic nodule with maximum standard uptake value of 11.6. This is no longer apparent. No new liver lesion is seen. In front of the sacrum, there is a midline hypermetabolic lymph node again seen. This demonstrated maximum SUV value of 9.4 on the previous PET. It measures 1.1 cm in diameter and remains hypermetabolic, maximum standard uptake value is 10.53. No other abnormal hypermetabolic uptake is seen in the abdomen or pelvis. There is left inguinal hypermetabolic christina uptake in a 1 cm lymph node. Maximum standard uptake value is 6.85. This is a new finding. There is a hiatal hernia. Head and neck soft tissues are unremarkable. No abnormal hypermetabolic uptake is seen within the thorax. Impression: The previously noted hypermetabolic liver lesion is no longer apparent. There is persistent hypermetabolic uptake in a 1 cm pericolonic or mesenteric lymph node in the central abdomen. Today's CT study demonstrates new christina hypermetabolic uptake in a normal sized left inguinal lymph node. Electronically Signed by Tanner Estevez MD 03/05/2019 03:46 P
== END ==
LOC: M PLARAD 11:45
PROVIDERS: ATTEND Internal Medicine Hematology & Oncology
DX: C21.0 Malignant neoplasm of anus, unspecified (principal); K44.9 Diaphragmatic hernia without obstruction or gangrene; R59.0 Localized enlarged lymph nodes
CPT/HCPCS: 78815; A9552

== ENCOUNTER → 2019-03-20 | Outpatient (CLI) | payer MEDICARE, MEDICAID ==
--- NOTE | 2019-03-20 14:57 | RADONC ---
RADIATION ONCOLOGY FOLLOWUP NOTE DATE OF SERVICE: 03/20/2019 DATE OF : 1955 CHART NUMBER: [id number] Ms. Monique is a 64-year-old woman who had a diagnosis of anal cancer. She completed radiation therapy in conjunction with 5-FU infusion on 02/08/2019. INTERVAL HISTORY: She is doing very well. She had a PET/CT on 02/14/2019, which reported previously noted hypermetabolic liver lesion is no longer apparent. There is a persistent hypermetabolic uptake 1 cm pericolonic or mesenteric lymph node. CT also demonstrated new christina hypermetabolic uptake in a normal-sized left inguinal lymph node. SYSTEMIC REVIEW: She denies any weight loss, bowel problem, or urinary problems. She has no respiratory, cardiovascular symptoms. ECOG Performance score; 0, PHYSICAL EXAMINATION: she is well developed and nourished, not in apparent distress. Lungs are clear. Abdomen is soft, nontender, nondistended without any palpable mass. I tried to feel the inguinal lymph node. There is no palpable inguinal lymphadenopathy. Perianal skin shows hyperpigmentation without any lesions or nodularity. ASSESSMENT AND RECOMMENDATION: This 64-year-old woman who has a diagnosis of anal cancer. The radiation therapy was completed on 02/08/2019 in conjunction with chemotherapy. She is doing very well without any usual side effect. She had a PET/CT, which reported the liver lesion is no longer apparent. There is a persistent 1 cm pericolonic or mesenteric lymph node, and CT also demonstrated a new christina hypermetabolic uptake in a normal-sized left inguinal lymph node. She is being followed by the medical oncologist and surgeon. She was advised to continue followup care with the physicians involved and, she was also asked to return here in 3 months for checkup. NICK
== END ==
LOC: M ONCR 13:34
PROVIDERS: ATTEND Radiology Radiation Oncology
DX: C21.0 Malignant neoplasm of anus, unspecified (principal); Z92.3 Personal history of irradiation

== ENCOUNTER → 2019-04-11 | Outpatient (CLI) | payer MEDICARE, MEDICAID ==
[2019-04-11 16:05] LABS: BLOOD UREA NITROGEN 20 MG/DL (7-18); CREATININE FOR GFR 0.89 MG/DL (0.55-1.30); GLOMERULAR FILTRATION RATE > 60.0 (>45)
== END ==
LOC: M LAB 15:20
PROVIDERS: ATTEND Nurse Practitioner Family
DX: C78.7 Secondary malignant neoplasm of liver and intrahepatic bile duct (principal)

== ENCOUNTER → 2019-04-19 | Outpatient (CLI) | payer MEDICARE, MEDICAID ==
[~2019-04-19] MED LIST changes: +GASTROGRAFIN SOLUTION 30ML (Q9963) As Ordered ONE; +ISOVUE-370 76% 100ML VIAL (Q9967) As Ordered ONE; +LEVO50TA5 PO
--- NOTE | 2019-04-19 14:23 | REP ---
Clinical: History of anal carcinoma. Technique: Axial contrast enhanced images from the lung bases to the pubic symphysis using oral (per protocol) and 100 ml Isovue 370 intravenous contrast material with coronal and sagittal re-formations. Comparison: 02/14/2019. Findings: Few new mildly prominent lymph nodes in the retroperitoneum at the level of the aortic bifurcation to iliac arteries measure up to 12 mm diameter. Subtle low density hepatic lesion measuring approximately 1.8 cm in the posterior segment right lobe represents a relatively new finding as compared to 02/14/2019. Chronic mucosal thickening of the colon within the pelvis and perirectal soft tissue appears stable and likely represents changes related to radiation therapy. Spleen, pancreas, gallbladder, bilateral adrenal glands and kidneys are normal / stable. There is a moderate hiatal hernia at the gastroesophageal junction. There is no evidence for bowel obstruction. Further evaluation the pelvis demonstrates relatively normal bladder. No ascites. No free air. Abdominal aorta without aneurysm or dissection. Musculoskeletal structures without focal abnormality. The lung bases are clear. Impression: 1. New mildly prominent lymph nodes at the level of the aortic bifurcation to iliac arteries measure up to 12 mm and concerning for metastatic disease. 2. Vague new hypodense lesion in the liver not identified on prior examination is nonspecific but concerning for metastatic disease. Electronically Signed by Dima Espinoza MD 04/19/2019 02:14 P
== END ==
LOC: M RAD 11:54
PROVIDERS: ATTEND Internal Medicine Medical Oncology
DX: C21.0 Malignant neoplasm of anus, unspecified (principal); R59.9 Enlarged lymph nodes, unspecified; K76.89 Other specified diseases of liver
CPT/HCPCS: 74177; Q9963; Q9967

== ENCOUNTER → 2019-04-30 | Outpatient (CLI) | payer MEDICARE, MEDICAID ==
[~2019-04-30] MED LIST changes: -GASTROGRAFIN SOLUTION 30ML (Q9963) As Ordered ONE; -ISOVUE-370 76% 100ML VIAL (Q9967) As Ordered ONE
--- NOTE | 2019-05-01 09:11 | REP ---
PET/CT: HISTORY: Restaging rectal cancer. 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 COMPARISONS: Comparison PET/CT studies are dated March 05, 2019 and December 11, 2018. Comparison CT study abdomen pelvis April 19, 2019. TECHNIQUE: 59 minutes following the intravenous injection of a 8.22 mCi dose of F-18 FDG, three-dimensional PET scintigraphy is acquired from the skull base to the proximal thighs. Triplanar noncontrast CT scanning is acquired through the same anatomic range for attenuation correction, and image registration with scan parameters optimized to minimize radiation exposure to the patient. PET scintigraphy and CT datasets were fused and displayed on a workstation with multiplanar and projection display capability. PET/CT FINDINGS: Head and neck soft tissues remain unremarkable. There is no abnormal intrathoracic hypermetabolic uptake. A stable 5 mm right upper lobe nodule is seen. No discernible uptake. This is unchanged from December 04, 2018. No new pulmonary nodule is appreciated. There is a hiatal hernia. There are three definite new hypermetabolic lesions in the liver and the one equivocal peripheral lesion . These are in both the right and left lobe. The liver lesions range in maximum SUV value from 8.07-14.60. The equivocal lesion in the periphery of the left lobe has a maximum SUV value of 2.83 which is similar to background liver uptake. There are multiple christina foci seen today showing hypermetabolic uptake, increased from the prior study. Two small nodes are noted at the aortic bifurcation with a maximum standard uptake value 7.55 and 4.70. There is a presacral node again seen with maximum standard uptake value 8.60. A left iliac lymph node focus is seen today with maximum standard uptake value 8.61. The largest of these lymph nodes measures 13 mm in greatest diameter. IMPRESSION: There are new hypermetabolic christina foci in the left iliac and periaortic node distribution. There are also new focal liver lesions. Electronically Signed by Tanner Estevez MD 05/01/2019 06:14 P
== END ==
LOC: M PLARAD 14:54
PROVIDERS: ATTEND Internal Medicine Medical Oncology
DX: C20 Malignant neoplasm of rectum (principal)
CPT/HCPCS: 78815; A9552

== ENCOUNTER → 2019-05-28 | Outpatient (REF) | payer MEDICARE, MEDICAID ==
[~2019-05-28] MED LIST changes: +ONDA8TAB10 PO; +PROC10TA4 PO
[2019-05-28 11:15] LABS: HEMOGLOBIN A1c 5.3 %
== END ==
LOC: M LAB REF 10:12
PROVIDERS: ATTEND Physician Assistant
DX: E11.9 Type 2 diabetes mellitus without complications (principal)

== ENCOUNTER → 2019-06-26 | Outpatient (CLI) | payer MEDICARE, MEDICAID ==
[~2019-06-26] MED LIST changes: +LIDO2.5C15 TOP
--- NOTE | 2019-06-27 10:10 | RADONC ---
RADIATION ONCOLOGY FOLLOWUP NOTE DATE: 06/26/2019 CHART NUMBER: [id number] DIAGNOSIS: Anal cancer. STAGE: Metastatic. ECOG PERFORMANCE STATUS: 1 FOLLOWUP NOTE: Ms. 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 The patient is presently receiving chemotherapy with her medical oncologist, Dr. Emy Hawthorne. REVIEW OF SYSTEMS: The patient's review of systems is noncontributory. Denies nausea, vomiting, fevers, chills, night sweats, diplopia, headaches, anxiety or depression, anorexia, weight loss, visual disturbances, chest pain, urinary or bowel difficulties, bone pain, or neurological problems. PHYSICAL EXAMINATION: Physical exam was deferred at this time. ASSESSMENT: The patient is presently undergoing systemic therapy on a routine basis. Apparently, she set up this appointment by mistake at this point since she is being managed closely through medical oncology. In light of this, I have discharged her from my followup except on a p.r.n. basis. cc: Adolfo Woodard, MD Juan Alberto Lucia MD Gerald Weinstein, MD
== END ==
LOC: M ONCR 13:05
PROVIDERS: ATTEND Radiology Radiation Oncology
DX: C21.0 Malignant neoplasm of anus, unspecified (principal)

== ENCOUNTER → 2019-07-18 | Outpatient (CLI) | payer MEDICARE, MEDICAID ==
[~2019-07-18] MED LIST changes: +ATIV1TAB10 PO; +GASTROGRAFIN SOLUTION 30ML (Q9963) As Ordered ONE; +HYDR-3716 PO; +HYOS125TA PO; +ISOVUE-370 76% 100ML VIAL As Ordered ONE; +MIRA1POW3 PO; +MM S100C PO; +MORP-69 PO; +MORP20SOL PO; +NICO1DIS11 TOP
--- NOTE | 2019-07-18 17:33 | REP ---
CT CHEST WITH IV CONTRAST: HISTORY: Anal carcinoma. Stage IV with progressive abdomen pain. On the first line palliative chemotherapy. Rule out progression. Comparison PET/CT study April 30, 2019. CT CONTRAST DOSE: 100 mL of intravenous Isovue [address] FINDINGS: A large hiatal hernia is noted. Orally administered contrast is seen filling the esophagus consistent with reflux. There is mild diffuse mural thickening in the esophagus consistent with diffuse esophagitis, reflux versus other. A right-sided Jbidsy-L-Gfjo catheter is noted in place. No extrathoracic mass or adenopathy is seen. 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 There is new bilateral hilar and subcarinal mediastinal lymphadenopathy. There are one or two pretracheal lymph nodes which are also slightly more prominent than on the prior PET/CT study. There are two subcarinal nodes, the largest of which measures 1.6 cm in short axis dimension. No filling defect is seen in the pulmonary arterial tree. On lung window settings there are multiple new pulmonary nodules. The largest of these is a left infrahilar lower lobe nodule which measures 6 x 9 mm. The previously noted right lower lobe nodule appears a little larger than on the April 30, 2019 study. There are several new subcentimeter nodules. No bony destructive lesion is seen. IMPRESSION: Findings consistent with progressive intrathoracic disease with bilateral hilar and mediastinal lymphadenopathy and multiple bilateral new pulmonary metastatic nodules. Electronically Signed by Tanner Estevez MD 07/18/2019 05:44 P
--- NOTE | 2019-07-18 17:38 | REP ---
CT ABDOMEN PELVIS WITH IV AND ORAL CONTRAST: HISTORY: Stage IV anal carcinoma on chemotherapy with progressive abdominal pain. Rule out progression. Comparison CT study of the abdomen and pelvis is from April 19, 2019. Comparison PET/CT April 30, 2019. CT CONTRAST DOSE: 100 mL of intravenous Isovue 370. CT FINDINGS: The mass along the right side of the lower rectum is again seen essentially unchanged. There is however progressive common iliac chain and left internal iliac chain lymphadenopathy when compared with the prior study of April 19, 2019. There are two or three confluent nodes just anterior to the left common iliac artery which measure 2.8 x 1.8 cm. These are more numerous and have enlarged. There is a new left periaortic lymph node above this measuring 8 mm in short axis dimension. There is a 10 mm new left periaortic lymph node. An aortocaval lymph node is seen measuring 11 mm in greatest diameter. Just below the renal vascular pedicle there is a retroperitoneal left periaortic lymph node measuring 2.1 x 1.3 cm. Today's study unfortunately demonstrates bilateral renal masses consistent with bilateral renal metastases. These are new as well. There is a linear nodularity extending posteriorly adjacent to the left adrenal gland. There is early portacaval adenopathy. There are multiple liver lesions consistent with hepatic metastases. The largest of these is in the right lobe of the liver measuring 3.4 cm in greatest diameter. No splenic lesion is seen. There is no evidence of ascites. There are tiny peritoneal implants along the anterior margin of the liver. There is no evidence of free air or obstructive gastrointestinal lesion. There is a new lytic lesion in the posterior T12 vertebral body. This measures 12 mm in greatest diameter. IMPRESSION: Progressive christina intra-abdominal peritoneal and hepatic disease. There is a new lytic lesion in the T12 vertebral body suggestive of a bony metastasis. There are multiple bilateral renal masses consistent with renal metastases. Electronically Signed by Tanner Estevez MD 07/18/2019 05:44 P
== END ==
LOC: M RAD 14:17
PROVIDERS: ATTEND Internal Medicine Medical Oncology
DX: C21.0 Malignant neoplasm of anus, unspecified (principal); R10.9 Unspecified abdominal pain; Z79.899 Other long term (current) drug therapy
CPT/HCPCS: 36591; 71260; 74177; 80053; 84443; 85027; G0463; J1642; Q9963; Q9967